=== PATIENT | female | born 1945 | race Caucasian/White ===

== ENCOUNTER → 2017-08-13 16:27 | Outpatient (CLI) | payer MEDICARE, SELFPAY ==
[2017-08-13 17:18] LABS: Appearance Urine UA CLOUDY; Bilirubin Urine UA NEGATIVE (NEGATIVE); Color Urine UA YELLOW; Glucose Urine UA 1+ g/dL (Negative); Ketones Urine UA TRACE (NEGATIVE); Leukocyte Esterase Urine UA 2+ (NEGATIVE); Nitrite Urine UA NEGATIVE (NEGATIVE); Occult Blood Urine UA 2+ (Negative); Protein Urine UA 3+ (Negative); Specific Gravity Urine UA 1.025 (1.000-1.035); Urobilinogen Urine UA 0.2 E.U./dL (0.2)
[2017-08-13 17:24] LABS: Bacteria Urine Many (>30); RBC Urine 0-1/HPF (0-5/HPF); Squamous Epithelial Cell Urine 1-5 /HPF; WBC Urine >100/HPF (0-5/HPF)
[2017-08-13 17:25] LABS: Culture Indicated Urine Specimen Cultured
--- NOTE | 2017-08-23 14:01 | PC.NURSE ---
Pt has appt today.MD visit and carey. Rodney called She is just too weak to get out of the house does not want to come today In ER on weekend -had IVF.Last H/H stable.Still having intermittent diahhrea.Discussed coming next week and if overall strength and stamina remain poor to evaluate status and goals.Discussed with Dr Sanchez
== END ==
PROVIDERS: PCP Family Medicine; Visit Provider Student in an Organized Health Care Education/Training Program
DX: N30.00 Acute cystitis without hematuria (principal)
CPT/HCPCS: 81001; 87086

== ENCOUNTER 2017-08-21 11:47 | Emergency (ER) | payer MEDICARE, SELFPAY ==
[2017-08-21 12:29] VITALS: BP 125/55; PULSE 56; RESP 14; TEMP 36.2; O2SAT 100
[2017-08-21 13:29] LABS: Add Manual Diff / Slide Review NO; Eosinophils Percent Auto 2.6 % (2-4); Hematocrit 27.2 % (36-46); Hemoglobin 9.5 g/dL (12.0-16.0); Lymphocytes Percent Auto 11.5 % (25-40); Mean Corpuscular HGB Conc 34.9 % (30-36); Mean Corpuscular Volume 97.5 fL (80-100); Monocytes Percent Auto 5.8 % (3-14); Neutrophils Absolute Auto 6500 /uL (3000-5900); Neutrophils Percent Auto 79.1 % (50-75); Platelet Count 150 X10^3/uL (150-400); Red Blood Cell Count 2.79 X10^6/uL (4.0-5.2); White Blood Cell Count 8.2 X10^3/uL (4.5-11.0)
--- NOTE | 2017-08-21 13:35 | ED.ABDPAIN ---
HPI - Abdominal Pain General Chief Complaint: Abdominal Pain Stated Complaint: 'OOZING BLOOD' Time Seen by Provider: 08/21/17 13:35 Source: patient Mode of arrival: ambulatory Limitations: no limitations History of Present Illness HPI narrative: Patient is a 72-year-old female with chronic kidney disease on peritoneal dialysis presenting with diarrhea. She has had multiple episodes. It has been black on off and on. She had blood work done about a week or more ago when she said her hemoglobin was 8. She did not receive a blood transfusion. She denies any nausea vomiting fevers or abdominal pain. She is not on antiplatelet or anticoagulation medication. She overall feels weak and more tired. No shortness of breath dizziness or lightheadedness. Location: diffuse Related Data Home Medications Medication Instructions Recorded Confirmed furosemide 80 mg PO DAILY #0 10/19/16 08/21/17 phenytoin sodium extended 300 mg PO HS #0 11/30/16 08/21/17 [Dilantin Extended] duloxetine 30 mg PO BID #0 12/01/16 08/21/17 insulin aspart U-100 [Novolog 1 dose SQ BID #0 12/07/16 08/21/17 PenFill U-100 Insulin] losartan 75 mg PO QPM #0 05/18/17 08/21/17 diphenoxylate-atropine 2 tab PO PRN PRN 07/30/17 08/21/17 B complex-vitamin C-folic acid 1 tab PO DAILY 08/21/17 08/21/17 [Nickie-Camilo] atenolol 25 mg PO QPM 08/21/17 08/21/17 cholestyramine (with sugar) 1 dose PO DAILY 08/21/17 08/21/17 digoxin [Lanoxin] 1 tab PO QPM 08/21/17 08/21/17 insulin glargine [Lantus U-100 1 dose SQ BID 08/21/17 08/21/17 Insulin] potassium chloride 2 cap PO BID 08/21/17 08/21/17 sevelamer carbonate [Renvela] 2 tab PO TIDWM 08/21/17 08/21/17 Previous Rx's Medication Instructions Recorded levothyroxine 100 mcg PO QAM #90 tab 04/06/16 gabapentin 200 mg PO HS #180 cap 06/04/17 Allergies Allergy/AdvReac Type Severity Reaction Status Date / Time metformin Allergy Mild GI UPSET Unverified 07/04/17 12:02 phenobarbital Allergy Mild GI UPSET Unverified 07/04/17 12:02 Sulfa (Sulfonamide Allergy Mild HIVES Unverified 07/04/17 12:02 Antibiotics) tetanus toxoid, adsorbed Allergy Mild RASH Unverified 07/04/17 12:02 Review of Systems Review of Systems All systems reviewed & are unremarkable except as noted in HPI and below Constitutional Denies chills, Denies fever(s), Denies lethargy and Denies weakness Cardiovascular Denies chest pain, Denies irregular heart rhythm, Denies lightheadedness, Denies palpitations, Denies dyspnea, Denies dyspnea on exertion and Denies orthopnea Respiratory Denies cough, Denies dyspnea, Denies dyspnea on exertion and Denies wheezing Gastrointestinal Gastrointestinal: Reports as per HPI and Reports system reviewed and no additional complaints, except as docu Integumentary/Breasts Denies pruritus, Denies erythema, Denies rash and Denies wounds Neurologic Denies weakness Endocrine Denies palpitations Allergic/Immunologic Denies wheezing PFSH Medical History Anemia (Acute) Chronic kidney disease (Acute) Subarachnoid hemorrhage (Acute) Family History Mother Age: 95 Osteoporosis Social History Smoking Status: Never smoker Exam Initial Vital Signs Initial Vital Signs: Vital Signs Temperature 97.1 F L 08/21/17 12:29 Pulse Rate 56 L 08/21/17 12:29 Respiratory Rate 14 08/21/17 12:29 Blood Pressure 125/55 H 08/21/17 12:29 Pulse Oximetry 100 08/21/17 12:29 Const General: cooperative and well developed Nutritional Appearance: well nourished Orientation: alert, awake, oriented x3 and not confused Chest Chest: normal inspection of the chest Resp Effort & Inspection: normal respiratory effort, able to speak in complete sentences, no respiratory distress and no use of accessory muscles Auscultation: clear to auscultation bilaterally, no rales, no rhonchi and no wheezes Cardio Rate: regular rate Rhythm: regular rhythm Heart Sounds: no click, no gallops, no murmurs and no rubs Pulses: normal peripheral pulses GI Rectal Exam: visual inspection normal, normal sphincter tone and heme negative stool Other: Peritoneal catheter in place no sign of infection Skin General: no rashes or lesions noted, No jaundice and No petechiae Neuro General: alert, oriented x3, gait normal and no focal motor deficits Speech: speech normal Course Orders Ordered: ED Orders 08/21/17 13:02 Complete Blood Count AUTO DIFF Stat Comprehensive Metabolic Panel Stat Lipase Stat Discontinued Medications Sodium Chloride (Normal Saline 0.9%) 1,000 mls @ 150 mls/hr IV CONT TOPHER Last Infusion: 08/21/17 14:51 Dose: 150 mls/hr Admin: 08/21/17 13:49 Dose: 150 mls/hr Vital Signs - 8 hr 08/21/17 12:29 08/21/17 15:13 Temperature 97.1 F L 97.8 F Pulse Rate 56 L 68 Respiratory Rate 14 14 Blood Pressure 125/55 H 136/78 H Pulse Oximetry 100 98 MDM - Abdominal Pain Lab Data Result diagrams: 08/21/17 13:02 08/21/17 13:02 Lab Results 08/21/17 08/21/17 Range/Units 13:02 13:02 WBC 8.2 (4.5-11.0) X10^3/uL RBC 2.79 L (4.0-5.2) X10^6/uL Hgb 9.5 L (12.0-16.0) g/dL Hct 27.2 L (36-46) % MCV 97.5 (80-100) fL MCH 34.0 (26-34) PG MCHC 34.9 (30-36) % RDW 16.0 H (11.6-14.8) % Plt Count 150 (150-400) X10^3/uL Neut % (Auto) 79.1 H (50-75) % Lymph % (Auto) 11.5 L (25-40) % [place] % (Auto) 5.8 (3-14) % Eos % (Auto) 2.6 (2-4) % Baso % (Auto) 1.0 (0-2) % Neut # (Auto) 6500 H (4981-7475) /uL Sodium 140 (137-145) mmol/L Potassium 4.3 (3.4-5.1) mmol/L Chloride 101 (98-107) mmol/L Carbon Dioxide 19 L (22-32) mmol/L BUN 103 H (7-17) mg/dL Creatinine 5.60 H (0.52-1.04) mg/dL Estimated GFR 7.5 L (>60) mL/min BUN/Creatinine Ratio 18.4 (6-22) Glucose 199 H (80-110) mg/dL Calcium 8.2 L (8.4-10.2) mg/dL Total Bilirubin 0.4 (0.2-1.3) mg/dL AST 15 (14-36) IU/L ALT 32 (9-52) IU/L Alkaline Phosphatase 161 H (38-126) U/L Total Protein 6.1 L (6.3-8.2) g/dL Albumin 3.2 L (3.5-5.0) g/dL Globulin 2.9 (1.7-4.1) g/dL Albumin/Globulin Ratio 1.1 (1.0-2.8) Lipase 164 (23-300) U/L Discharge Plan Departure Patient Disposition: Home, Self-Care Clinical Impression: Diarrhea Discharge Date/Time: 08/21/17 15:16 Interventions: ED Discharge Assessment Last Done: 08/21/17 15:13 Activity Restrictions/Additional Instructions: *You have been diagnosed with diarrhea *What to do: Hemoglobin is improving. No evidence of active bleeding at this time *Take medications as directed *Follow up with your primary care provider in 2-3 days *Return to ER if you should have increasing black stools, worsening pain, dizziness, lightheadedness any new, worsening or concerning symptoms Prescriptions: No Action levothyroxine 100 MCG tablet 100 mcg PO QAM Qty: 90 RF: 3 furosemide 80 MG tablet 80 mg PO DAILY Qty: 0 RF: 0 phenytoin sodium extended [Dilantin Extended] 100 MG capsule 300 mg PO HS Qty: 0 RF: 0 duloxetine 30 MG capsule,delayed release(DR/EC) 30 mg PO BID Qty: 0 RF: 0 insulin aspart U-100 [Novolog PenFill U-100 Insulin] 100 UNIT/1 ML cartridge 1 dose SQ BID Qty: 0 RF: 0 losartan 50 MG tablet 75 mg PO QPM Qty: 0 RF: 0 gabapentin 100 MG capsule 200 mg PO HS Qty: 180 RF: 3 potassium chloride 10 mEq capsule, extended release 2 cap PO BID RF: 0 cholestyramine (with sugar) 4 gram powder in packet 1 dose PO DAILY RF: 0 sevelamer carbonate [Renvela] 800 mg tablet 2 tab PO TIDWM RF: 0 B complex-vitamin C-folic acid [Nickie-Camilo] 0.8 mg tablet 1 tab PO DAILY RF: 0 insulin glargine [Lantus U-100 Insulin] 100 UNIT/1 ML solution 1 dose SQ BID RF: 0 atenolol 25 MG tablet 25 mg PO QPM RF: 0 digoxin [Lanoxin] 250 MCG tablet 1 tab PO QPM RF: 0 diphenoxylate-atropine 2.5 MG/0.025 MG tablet 2 tab PO PRN PRN (Reason: Diarrhea) RF: 0 Referrals: Randi Lara MD [Primary Care Provider] -
[2017-08-21 13:37] LABS: Alanine Aminotransferase 32 IU/L (9-52); Albumin 3.2 g/dL (3.5-5.0); Albumin Globulin Ratio 1.1 (1.0-2.8); Alkaline Phosphatase 161 U/L (38-126); Aspartate Aminotransferase 15 IU/L (14-36); BUN Creatinine Ratio 18.4 (6-22); Bilirubin Total 0.4 mg/dL (0.2-1.3); Blood Urea Nitrogen 103 mg/dL (7-17); Calcium 8.2 mg/dL (8.4-10.2); Carbon Dioxide 19 mmol/L (22-32); Chloride 101 mmol/L (98-107); Estimated Glomerular Filt Rate 7.5 mL/min (>60); Globulin 2.9 g/dL (1.7-4.1); Glucose 199 mg/dL (80-110); HEMOLYSIS < 15 (0-50); Lipase 164 U/L (23-300); Potassium 4.3 mmol/L (3.4-5.1); Sodium 140 mmol/L (137-145); Total Protein 6.1 g/dL (6.3-8.2)
[2017-08-21] MEDS: SODIUM CHLORIDE 0.9% 1,000 ML 150 ML IV (13:49)
[2017-08-21 15:13] VITALS: BP 136/78; PULSE 68; RESP 14; TEMP 36.6; O2SAT 98
== END 2017-08-21 15:16 | disposition home or self-care (01) ==
PROVIDERS: Emergency Provider Emergency Medicine; PCP Family Medicine
DX: R19.7 Diarrhea, unspecified (principal)
CPT/HCPCS: 36591; 80053; 83690; 85025; 93005; 96360; 99283; 99284

== ENCOUNTER → 2017-08-27 15:10 | Outpatient (CLI) | payer MEDICARE, SELFPAY ==
[2017-08-27 15:51] LABS: Bilirubin Urine UA NEGATIVE (NEGATIVE); Color Urine UA YELLOW; Glucose Urine UA 1+ g/dL (Normal); Ketones Urine UA NEGATIVE (NEGATIVE); Leukocyte Esterase Urine UA 1+ (NEGATIVE); Nitrite Urine UA Negative (Negative); Occult Blood Urine UA TRACE-INTACT (Negative); Protein Urine UA 2+ (Negative); Specific Gravity Urine UA 1.025 (1.000-1.035); Urobilinogen Urine UA 0.2 E.U./dL (0.2)
[2017-08-27 15:59] LABS: Appearance Urine UA CLOUDY
[2017-08-27 16:02] LABS: RBC Urine 0-1/HPF (0-5/HPF); Squamous Epithelial Cell Urine 1-5 /HPF; WBC Urine 1-5/HPF (0-5/HPF)
[2017-08-27 16:03] LABS: Amorphous Sediment Urine 2+; Bacteria Urine Moderate (10-30); Culture Indicated Urine Specimen Cultured
== END ==
PROVIDERS: PCP Family Medicine; Visit Provider Student in an Organized Health Care Education/Training Program
DX: N30.00 Acute cystitis without hematuria (principal)
CPT/HCPCS: 81001; 87086

== ENCOUNTER → 2017-09-05 13:56 | Outpatient (CLI) | payer MEDICARE, SELFPAY ==
[2017-09-07 16:26] LABS: Immunoglobulin G, Quantitative 849 mg/dL (694-1618)
[2017-09-07 16:34] LABS: Free Kappa Light Chain 639.8 mg/L (3.3-19.4); Free Kappa/ Lambda Ratio 41.85 (0.26-1.65); Free Lambda 15.3 mg/L (5.7-26.3)
== END ==
PROVIDERS: PCP Family Medicine; Visit Provider Nurse Practitioner Gerontology
DX: C90.00 Multiple myeloma not having achieved remission (principal)
CPT/HCPCS: 36415; 82232; 82784; 83883

== ENCOUNTER → 2017-10-29 09:54 | Outpatient (CLI) | payer MEDICARE, SELFPAY ==
[2017-10-29 10:20] LABS: Add Manual Diff / Slide Review NO; Basophils Percent Auto 4.9 % (0-2); Eosinophils Percent Auto 5.3 % (2-4); Hemoglobin 9.5 g/dL (12.0-16.0); Lymphocytes Percent Auto 11.3 % (25-40); Mean Corpuscular HGB Conc 35.1 % (30-36); Mean Corpuscular Hemoglobin 34.4 PG (26-34); Mean Corpuscular Volume 97.9 fL (80-100); Monocytes Percent Auto 5.9 % (3-14); Neutrophils Absolute Auto 4600 /uL (3000-5900); Neutrophils Percent Auto 72.6 % (50-75); Platelet Count 158 X10^3/uL (150-400); Red Blood Cell Count 2.76 X10^6/uL (4.0-5.2); Red Cell Distribution Width 17.6 % (11.6-14.8); White Blood Cell Count 6.4 X10^3/uL (4.5-11.0)
[2017-10-29 10:32] LABS: Alanine Aminotransferase 27 IU/L (9-52); Albumin 3.3 g/dL (3.5-5.0); Albumin Globulin Ratio 1.2 (1.0-2.8); Alkaline Phosphatase 121 U/L (38-126); Aspartate Aminotransferase 18 IU/L (14-36); BUN Creatinine Ratio 13.5 (6-22); Bilirubin Total 0.4 mg/dL (0.2-1.3); Blood Urea Nitrogen 69 mg/dL (7-17); Calcium 8.1 mg/dL (8.4-10.2); Carbon Dioxide 20 mmol/L (22-32); Chloride 102 mmol/L (98-107); Estimated Glomerular Filt Rate 8.4 mL/min (>60); Globulin 2.8 g/dL (1.7-4.1); Glucose 341 mg/dL (80-110); HEMOLYSIS < 15 (0-50); Potassium 3.7 mmol/L (3.4-5.1); Sodium 136 mmol/L (137-145); Total Protein 6.1 g/dL (6.3-8.2)
[2017-10-31 12:31] LABS: Free Kappa Light Chain 915.2 mg/L (3.3-19.4); Free Kappa/ Lambda Ratio 50.01 (0.26-1.65); Free Lambda 18.3 mg/L (5.7-26.3)
[2017-11-01 15:52] LABS: Albumin 3.3 g/dL (3.8-4.8); Alpha 1 Globulin 0.3 g/dL (0.2-0.3); Alpha 2 Globulin 0.8 g/dL (0.5-0.9); Beta 1 Globulin 0.2 g/dL (0.4-0.6); Gamma Globulin 0.7 g/dL (0.8-1.7); Protein, Total 5.6 g/dL (6.1-8.1)
== END ==
PROVIDERS: PCP Family Medicine; Visit Provider Internal Medicine Hematology & Oncology
DX: C90.00 Multiple myeloma not having achieved remission (principal)
CPT/HCPCS: 36415; 80053; 82784; 83883; 84155; 84165; 85025; 86334

== ENCOUNTER 2017-11-27 05:27 | Emergency (ER) | payer MEDICARE, SELFPAY ==
--- NOTE | 2017-11-27 05:34 | DI.RAD.S_ITS ---
PROCEDURE: XR ANKLE LT MIN 3V INDICATIONS: fall with ankle pain TECHNIQUE: 3 views of the ankle were acquired. COMPARISON: [facility], CR, FOOT 3V LEFT, 07/05/2012, 9:58. FINDINGS: Bones: There is a comminuted, oblique, intra-articular fracture of the lateral malleolus. Ankle mortise is normally aligned. No suspicious bony lesions. Soft tissues: No tibiotalar joint effusion. Achilles tendon appears normal. Soft tissue swelling over the lateral malleolus. Vascular calcifications consistent with atherosclerosis. IMPRESSION: Comminuted fracture of the lateral malleolus. Dictated by: Huy Garcia M.D. on 11/27/2017 at 8:40 Approved by: Huy Garcia M.D. on 11/27/2017 at 8:43
--- NOTE | 2017-11-27 05:35 | DI.RAD.S_ITS ---
PROCEDURE: XR CHEST 1V INDICATIONS: Shortness of breath, weakness TECHNIQUE: One view of the chest was acquired. COMPARISON: [facility], CHEST 2 VIEW, 02/26/2017, 12:23. [facility], CHEST 2 VIEW, 04/12/2017, 14:20. FINDINGS: Surgical changes and devices: None. Lungs and pleura: No pleural effusions or pneumothorax. Bibasilar atelectasis. Lungs are otherwise clear. Mediastinum: Mediastinal contours appear normal. Heart size is normal. Bones and chest wall: No suspicious bony lesions. Overlying soft tissues appear unremarkable. IMPRESSION: Bibasilar atelectasis. Dictated by: Huy Garcia M.D. on 11/27/2017 at 8:28 Approved by: Huy Garcia M.D. on 11/27/2017 at 8:29
[2017-11-27 06:00] VITALS: BP 133/46; PULSE 59; RESP 18; TEMP 36.9; O2SAT 97
[2017-11-27 06:10] LABS: Add Manual Diff / Slide Review NO; Eosinophils Percent Auto 1.2 % (2-4); Hematocrit 24.1 % (36-46); Hemoglobin 8.4 g/dL (12.0-16.0); Lymphocytes Percent Auto 7.2 % (25-40); Mean Corpuscular HGB Conc 34.7 % (30-36); Mean Corpuscular Hemoglobin 34.6 PG (26-34); Mean Corpuscular Volume 99.6 fL (80-100); Monocytes Percent Auto 6.5 % (3-14); Neutrophils Absolute Auto 8000 /uL (3000-5900); Neutrophils Percent Auto 84.1 % (50-75); Platelet Count 168 X10^3/uL (150-400); Red Blood Cell Count 2.42 X10^6/uL (4.0-5.2); Red Cell Distribution Width 16.1 % (11.6-14.8); White Blood Cell Count 9.6 X10^3/uL (4.5-11.0)
[2017-11-27 06:19] LABS: Alanine Aminotransferase 43 IU/L (9-52); Albumin 3.4 g/dL (3.5-5.0); Albumin Globulin Ratio 1.1 (1.0-2.8); Alkaline Phosphatase 151 U/L (38-126); Aspartate Aminotransferase 32 IU/L (14-36); BUN Creatinine Ratio 6.8 (6-22); Bilirubin Total 0.9 mg/dL (0.2-1.3); Blood Urea Nitrogen 50 mg/dL (7-17); Calcium 8.2 mg/dL (8.4-10.2); Carbon Dioxide 23 mmol/L (22-32); Chloride 104 mmol/L (98-107); Creatine Kinase 26 U/L (30-135); Estimated Glomerular Filt Rate 5.4 mL/min (>60); Globulin 3.2 g/dL (1.7-4.1); Glucose 218 mg/dL (80-110); HEMOLYSIS < 15 (0-50); Lipase 82 U/L (23-300); Potassium 3.2 mmol/L (3.4-5.1); Sodium 143 mmol/L (137-145); Total Protein 6.6 g/dL (6.3-8.2)
[2017-11-27] MEDS: SODIUM CHLORIDE 0.9% 1,000 ML 150 ML IV (06:25)
--- NOTE | 2017-11-27 06:27 | ED_ITS ---
HPI - Fall General Stated Complaint: Weakness Time Seen by Provider: 11/27/17 05:30 Source: patient, family and EMS Mode of arrival: EMS Limitations: no limitations History of Present Illness HPI Narrative: 9-year-old female with history of diabetes, multiple myeloma, renal failure on peritoneal dialysis presents with chief complaint of increasing fatigue and profound weakness over the past day or 2. She has become so weak she cannot get out of bed in her had to get her a wheelchair just to get to the bathroom. She fell yesterday due to this weakness and injured her left ankle. She denies any head, neck or back pain. She denies any chest pain or significant shortness of breath but does state she was recently admitted at a hospital in [facility] for aspiration pneumonia. She denies any fever or chills nor abdominal pain, nausea or vomiting. MD complaint: fall Onset (ago): day(s) Fall from: standing Fall witnessed: no Place fall occurred: home Loss of consciousness: none Prolonged down time: no Symptoms prior to fall: other Location of injury - extremities: Left: ankle Severity: mild Associated symptoms (after fall): weakness and lightheaded Related Data Home Medications Medication Instructions Recorded Confirmed furosemide 80 mg PO DAILY #0 10/19/16 11/22/17 duloxetine 30 mg PO BID #0 12/01/16 11/22/17 insulin aspart U-100 [Novolog 1 dose SQ BID #0 12/07/16 11/22/17 PenFill U-100 Insulin] insulin glargine [Lantus U-100 1 dose SQ BID 08/21/17 11/22/17 Insulin] sevelamer carbonate [Renvela] 2 tab PO TIDWM 08/21/17 11/22/17 losartan 50 mg tablet 50 mg PO QPM #0 tab 09/27/17 11/22/17 phenytoin sodium extended 100 mg 200 mg PO HS #0 cap 09/27/17 11/22/17 capsule cholecalciferol (vitamin D3) 5,000 5,000 unit PO DAILY 11/22/17 11/22/17 unit capsule diphenoxylate-atropine 2.5 2 tab PO Q6-8H PRN tab 11/22/17 11/22/17 mg-0.025 mg tablet opium tincture 10 mg/mL (morphine) 0.6 ml PO ONCE PRN ml 11/22/17 11/22/17 oral Previous Rx's Medication Instructions Recorded levothyroxine 100 mcg PO QAM #90 tab 04/06/16 gabapentin 200 mg PO HS #180 cap 06/04/17 atenolol 25 mg tablet 25 mg PO QPM #90 tab 09/03/17 multivitamin tablet 1 tab PO DAILY #90 tab 09/27/17 digoxin 250 mcg tablet 125 mcg PO QPM #45 tab 10/04/17 cholestyramine-aspartame 4 gram 4 gram PO QACBREAK #30 packet 10/09/17 oral powder for susp in a packet Allergies Allergy/AdvReac Type Severity Reaction Status Date / Time metformin Allergy Mild GI UPSET Verified 11/22/17 14:05 phenobarbital Allergy Mild GI UPSET Verified 11/22/17 14:05 Sulfa (Sulfonamide Allergy Mild HIVES Verified 11/22/17 14:05 Antibiotics) tetanus toxoid, adsorbed Allergy Mild RASH Verified 11/22/17 14:05 Review of Systems Review of Systems All systems reviewed & are unremarkable except as noted in HPI and below Constitutional Denies chills, Denies fever(s), Denies lethargy and Reports weakness Eyes Denies change in vision, Denies eye discharge, Denies irritation and Denies loss of vision ENT Ears, Nose, Mouth, and Throat: Denies change in voice, Denies neck pain and Denies sore throat Cardiovascular Denies chest pain, Denies irregular heart rhythm, Denies lightheadedness, Denies palpitations, Denies dyspnea, Denies dyspnea on exertion and Denies orthopnea Respiratory Denies cough, Denies dyspnea, Denies dyspnea on exertion and Denies wheezing Gastrointestinal Gastrointestinal: Denies abdominal pain, Denies change in bowel habits, Denies diarrhea, Denies nausea and Denies vomiting Genitourinary Denies hematuria, Denies flank pain, Denies urinary incontinence and Denies urinary urgency Musculoskeletal Reports joint swelling, Reports limited range of motion and Denies neck pain Integumentary/Breasts Denies pruritus, Denies erythema, Denies rash and Denies wounds Neurologic Denies confusion, Denies loss of vision and Reports weakness Psychiatric Denies anxiety, Denies confusion, Denies depression, Denies homicidal ideation and Denies suicidal ideation Endocrine Denies palpitations Hematologic/Lymphatic Denies easy bruising Allergic/Immunologic Denies wheezing Exam Narrative Exam Narrative: 72-year-old female appears unwell, a bit disheveled and with poor color Initial Vital Signs Initial Vital Signs: Vital Signs Temperature 98.4 F 11/27/17 06:00 Pulse Rate 59 L 11/27/17 06:00 Respiratory Rate 18 11/27/17 06:00 Blood Pressure 133/46 L 11/27/17 06:00 Pulse Oximetry 97 11/27/17 06:00 Const General: cooperative, well developed, in distress and ill appearing Nutritional Appearance: well nourished Orientation: alert, awake, oriented x3 and not confused HENNV Nose: external nose normal Mouth: No moist mucous membranes Teeth and gingiva: fair dentition Eyes General: appearance normal, both eyes and all related structures Eyelids: eyelids normal Conjunctivae: conjunctivae normal Sclera: sclerae normal Pupils: PERRL EOM: EOM intact bilaterally Chest Chest: normal inspection of the chest Resp Effort & Inspection: normal respiratory effort, able to speak in complete sentences, no respiratory distress and no use of accessory muscles Auscultation: clear to auscultation bilaterally, no rales, no rhonchi and no wheezes GI Inspection: non-distended Palpation: soft, no hepatosplenomegaly, No guarding, No pulsatile mass and No tender Auscultation: normal bowel sounds Back/Spine/Pelvis Back: No CVA tenderness Cervical Spine: cervical ROM normal and No pain with cervical ROM Thoracic/Lumbar Spine: thoracic and lumbar spine normal to inspection Skin Other: tenting, poor turgor Extrem Left lower extremity: ankle (Pain, swelling over lateral ankle. Closed, isolated, neurovascularly intact) [facility] Medical History Dependence on renal dialysis (Chronic 12/18/16) Multiple myeloma (Chronic) Hypertension (Chronic) Other and unspecified hyperlipidemia (Chronic) Controlled type 2 diabetes mellitus (Chronic) Hypothyroidism (acquired) (Chronic 12/16/10) Sleep apnea (Chronic) MGUS (monoclonal gammopathy of unknown significance) (Chronic 2014) Aortic stenosis (Chronic) Nephropathy (Chronic) Vitamin D deficiency (Chronic) Seizures (Chronic) Depression (Chronic 12/16/10) Anemia of chronic disease (Chronic) Renal failure (Chronic) Chronic kidney disease (Chronic 10/22/14) History of PSVT (paroxysmal supraventricular tachycardia) (Chronic 12/16/10) Hx of adenomatous colonic polyps (Inactive 12/16/10) History of vaginal delivery (Resolved) Surgical History History of arthroscopic knee surgery (Resolved 06/2010) History of breast biopsy (Resolved 1989) History of foot surgery (Resolved 1999) History of hysterectomy including cervix (Resolved 03/1977) History of surgery on arm (Resolved 2005) History of tonsillectomy (Resolved 1971) History of ventral hernia repair (Resolved 1991) Hx of cholecystectomy (Resolved 1978) Family History Mother Age: 95 Osteoporosis Father Lung cancer Social History marital status: number of children: 3 household members: spouse lives independently: Yes caregiver/support person: No housing: house pets and animals: No education level: college occupational status: other (Retired) 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 bobby/yarsanism: Zoroastrianism travel history: recent ([place], [place]) leisure activities: games (Plays Cards) Smoking Status: Never smoker Tobacco: How many years used: 0 quit status: quit date established (Never Started) second hand exposure: No alcohol intake: never substance use type: does not use Procedures Orthopedic Splinting/Casting Injury #1: Side: left Lower Extremity Injury Location: ankle Lower Extremity Immobilizer: stirrup splint Course Orders Ordered: ED Orders 11/27/17 05:34 XR ankle LT min 3V Stat 11/27/17 05:35 XR chest 1V Stat EKG-12 Lead Stat 11/27/17 05:37 Blood Culture Stat 11/27/17 05:45 B Type Natriuretic Peptide Stat Complete Blood Count AUTO DIFF Stat Comprehensive Metabolic Panel Stat Lactate (Lactic Acid) Stat Lipase Stat Procalcitonin Stat Troponin & CK Cardiac Panel Stat Sodium Chloride (Normal Saline 0.9%) 1,000 mls @ 150 mls/hr IV CONT TOPHER Last Admin: 11/27/17 06:25 Dose: 150 mls/hr Consultations Consultation #1: Called to patient's primary care provider regarding the possibility of admission here, however given her end-stage renal failure requiring dialysis, even know it is peritoneal patient performs it on herself at home, there is not sufficient backup in the event this patient continues to worsen. Furthermore her diagnosis is still non specific and may be evolving. 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 Consultation #2: call to Perlita Briones hospitalist sharmila. Dr. uBtler is happy to accept. Time: 07:00 Vital Signs - 8 hr 11/27/17 06:00 Temperature 98.4 F Pulse Rate 59 L Respiratory Rate 18 Blood Pressure 133/46 L Pulse Oximetry 97 MDM - Fall Differential Diagnosis Likely syncope, concussion with loss of consciousness and concussion without loss of consciousness Medical Records Attestation: I reviewed the patient's medical records. Lab Data Attestation: I reviewed the patient's lab results. Result diagrams: 11/27/17 05:45 11/27/17 05:45 Lab Results 11/27/17 11/27/17 11/27/17 Range/Units 05:45 05:45 05:45 WBC 9.6 (4.5-11.0) X10^3/uL RBC 2.42 L (4.0-5.2) X10^6/uL Hgb 8.4 L (12.0-16.0) g/dL Hct 24.1 L (36-46) % MCV 99.6 (80-100) fL MCH 34.6 H (26-34) PG MCHC 34.7 (30-36) % RDW 16.1 H (11.6-14.8) % Plt Count 168 (150-400) X10^3/uL Neut % (Auto) 84.1 H (50-75) % Lymph % (Auto) 7.2 L (25-40) % Lake % (Auto) 6.5 (3-14) % Eos % (Auto) 1.2 L (2-4) % Baso % (Auto) 1.0 (0-2) % Neut # (Auto) 8000 H (7930-7999) /uL Sodium (137-145) mmol/L Potassium (3.4-5.1) mmol/L Chloride (98-107) mmol/L Carbon Dioxide (22-32) mmol/L BUN (7-17) mg/dL Creatinine (0.52-1.04) mg/dL Estimated GFR (>60) mL/min BUN/Creatinine Ratio (6-22) Glucose (80-110) mg/dL Lactate (0.7-2.1) mmol/L Calcium (8.4-10.2) mg/dL Total Bilirubin (0.2-1.3) mg/dL AST (14-36) IU/L ALT (9-52) IU/L Alkaline Phosphatase (38-126) U/L Total Creatine Kinase (30-135) U/L Troponin I (0.01-0.034) ng/mL B-Natriuretic Peptide 210.0 H (<100) Total Protein (6.3-8.2) g/dL Albumin (3.5-5.0) g/dL Globulin (1.7-4.1) g/dL Albumin/Globulin Ratio (1.0-2.8) Lipase (23-300) U/L Procalcitonin 0.36 (<0.5) ng/mL 11/27/17 11/27/17 Range/Units 05:45 05:45 WBC (4.5-11.0) X10^3/uL RBC (4.0-5.2) X10^6/uL Hgb (12.0-16.0) g/dL Hct (36-46) % MCV (80-100) fL MCH (26-34) PG MCHC (30-36) % RDW (11.6-14.8) % Plt Count (150-400) X10^3/uL Neut % (Auto) (50-75) % Lymph % (Auto) (25-40) % Lake % (Auto) (3-14) % Eos % (Auto) (2-4) % Baso % (Auto) (0-2) % Neut # (Auto) (5255-5427) /uL Sodium 143 (137-145) mmol/L Potassium 3.2 L (3.4-5.1) mmol/L Chloride 104 (98-107) mmol/L Carbon Dioxide 23 (22-32) mmol/L BUN 50 H (7-17) mg/dL Creatinine 7.40 H (0.52-1.04) mg/dL Estimated GFR 5.4 L (>60) mL/min BUN/Creatinine Ratio 6.8 (6-22) Glucose 218 H (80-110) mg/dL Lactate 3.0 H (0.7-2.1) mmol/L Calcium 8.2 L (8.4-10.2) mg/dL Total Bilirubin 0.9 (0.2-1.3) mg/dL AST 32 (14-36) IU/L ALT 43 (9-52) IU/L Alkaline Phosphatase 151 H (38-126) U/L Total Creatine Kinase 26 L (30-135) U/L Troponin I < 0.012 (0.01-0.034) ng/mL B-Natriuretic Peptide (<100) Total Protein 6.6 (6.3-8.2) g/dL Albumin 3.4 L (3.5-5.0) g/dL Globulin 3.2 (1.7-4.1) g/dL Albumin/Globulin Ratio 1.1 (1.0-2.8) Lipase 82 (23-300) U/L Procalcitonin (<0.5) ng/mL Imaging Data Chest x-ray: Radiologist's impression: Prominence of the left pulmonary hilum may represent adenopathy or enlarged pulmonary artery, pleural-based lesion is also possible MDM Narrative Medical decision making narrative: Patient has very little in the way of specific complaint other than her ankle pain. Over the past 2 days she has had a significant departure from her normal level of strength and energy. She has multiple lab abnormalities which are slightly worse than her typical including potassium of 3.2, a bump in creatinine from her normal 5.1 up to 7.4 with a GFR of 5.4, slight decrease in hemoglobin from 9.5 down to 8.4 Discharge Plan Departure Patient Disposition: [facility] Clinical Impression: Acute dehydration, Weakness, Fracture of distal end of fibula, Acute hypokalemia Prescriptions: No Action levothyroxine 100 MCG tablet 100 mcg PO QAM Qty: 90 RF: 3 furosemide 80 MG tablet 80 mg PO DAILY Qty: 0 RF: 0 duloxetine 30 MG capsule,delayed release(DR/EC) 30 mg PO BID Qty: 0 RF: 0 insulin aspart U-100 [Novolog PenFill U-100 Insulin] 100 UNIT/1 ML cartridge 1 dose SQ BID Qty: 0 RF: 0 gabapentin 100 MG capsule 200 mg PO HS Qty: 180 RF: 3 multivitamin [Multiple Vitamins] tablet 1 tab PO DAILY Qty: 90 RF: 0 phenytoin sodium extended [Dilantin Extended] 100 mg capsule 200 mg PO HS Qty: 0 RF: 0 losartan 50 mg tablet 50 mg PO QPM Qty: 0 RF: 0 digoxin [Lanoxin] 250 mcg tablet 125 mcg PO QPM Qty: 45 RF: 3 diphenoxylate-atropine [Lomotil] 2.5-0.025 mg tablet 2 tab PO Q6-8H PRNRF: 0 opium tincture 10 mg/mL (morphine) tincture 0.6 ml PO ONCE PRNRF: 0 cholecalciferol (vitamin D3) 5,000 unit capsule 5,000 unit PO DAILY RF: 0 atenolol 25 mg tablet 25 mg PO QPM Qty: 90 RF: 3 cholestyramine-aspartame [Cholestyramine Light] 4 gram powder in packet 4 gram PO QACBREAK Qty: 30 RF: 11 sevelamer carbonate [Renvela] 800 mg tablet 2 tab PO TIDWM RF: 0 insulin glargine [Lantus U-100 Insulin] 100 UNIT/1 ML solution 1 dose SQ BID RF: 0
[2017-11-27 06:31] LABS: Troponin I < 0.012 ng/mL (0.01-0.034)
[2017-11-27 06:38] LABS: Procalcitonin 0.36 ng/mL (<0.5)
[2017-11-27] MEDS: CEFTRIAXONE 1 GM/50 ML FROZ.PIGGY IV (07:38)
[2017-11-27 07:52] VITALS: BP 120/43; PULSE 56; RESP 12; O2SAT 100
[2017-11-27 08:31] VITALS: BP 130/38; PULSE 63; RESP 12; O2SAT 94
[2017-11-27] MEDS: POTASSIUM CHLORIDE 20 MEQ/15 ML UDC 40 MEQ PO (08:32)
[2017-11-27] MEDS: ACETAMINOPHEN 325 MG TABLET 650 MG PO (08:32)
[2017-11-27 10:02] LABS: Reflexed Lactate in 2 Hours Y
== END 2017-11-27 09:21 | disposition short-term general hospital (02) ==
PROVIDERS: Emergency Provider Emergency Medicine; PCP Family Medicine
DX: S82.832A Other fracture of upper and lower end of left fibula, initial encounter for closed fracture (principal); E86.0 Dehydration; E87.6 Hypokalemia; Z99.2 Dependence on renal dialysis; W19.XXXA Unspecified fall, initial encounter
CPT/HCPCS: 29515; 36415; 36591; 71045; 73610; 80053; 82550; 82553; 83605; 83690; 83880; 84145; 84484; 85025; 87040; 93005; 93010; 96361; 96365; 99283; 99285

== ENCOUNTER → 2017-12-21 10:34 | Outpatient (CLI) | payer MEDICARE, SELFPAY ==
[2017-12-21 11:22] LABS: Appearance Urine UA CLOUDY; Bilirubin Urine UA NEGATIVE (NEGATIVE); Color Urine UA YELLOW; Glucose Urine UA TRACE g/dL (Normal); Ketones Urine UA TRACE (NEGATIVE); Leukocyte Esterase Urine UA 2+ (NEGATIVE); Nitrite Urine UA Negative (Negative); Occult Blood Urine UA 2+ (Negative); Protein Urine UA 3+ (Negative); Specific Gravity Urine UA 1.025 (1.000-1.035); Urobilinogen Urine UA 0.2 E.U./dL (0.2)
[2017-12-21 11:28] LABS: Bacteria Urine Many (>30); RBC Urine >100/HPF (0-5/HPF); Squamous Epithelial Cell Urine 10-30 /HPF; WBC Urine >100/HPF (0-5/HPF)
[2017-12-21 11:29] LABS: Culture Indicated Urine Cult Not Indicated
== END ==
PROVIDERS: PCP Family Medicine; Visit Provider Internal Medicine
DX: R39.89 Other symptoms and signs involving the genitourinary system (principal)
CPT/HCPCS: 81003; 81015

== ENCOUNTER → 2017-12-21 10:55 | Outpatient (CLI) | payer MEDICARE, SELFPAY ==
[2017-12-21 11:26] LABS: Add Manual Diff / Slide Review NO; Eosinophils Percent Auto 6.9 % (2-4); Hematocrit 29.4 % (36-46); Hemoglobin 10.3 g/dL (12.0-16.0); Lymphocytes Percent Auto 18.1 % (25-40); Mean Corpuscular Hemoglobin 33.3 PG (26-34); Mean Corpuscular Volume 95.2 fL (80-100); Monocytes Percent Auto 9.4 % (3-14); Neutrophils Absolute Auto 4300 /uL (3000-5900); Neutrophils Percent Auto 63.6 % (50-75); Platelet Count 165 X10^3/uL (150-400); Red Blood Cell Count 3.09 X10^6/uL (4.0-5.2); Red Cell Distribution Width 19.1 % (11.6-14.8); White Blood Cell Count 6.8 X10^3/uL (4.5-11.0)
[2017-12-21 11:36] LABS: Alanine Aminotransferase 50 IU/L (9-52); Albumin 3.5 g/dL (3.5-5.0); Albumin Globulin Ratio 1.2 (1.0-2.8); Alkaline Phosphatase 151 U/L (38-126); Aspartate Aminotransferase 31 IU/L (14-36); BUN Creatinine Ratio 8.1 (6-22); Bilirubin Total 0.5 mg/dL (0.2-1.3); Blood Urea Nitrogen 48 mg/dL (7-17); Calcium 8.7 mg/dL (8.4-10.2); Carbon Dioxide 24 mmol/L (22-32); Chloride 104 mmol/L (98-107); Estimated Glomerular Filt Rate 7.1 mL/min (>60); Globulin 2.9 g/dL (1.7-4.1); Glucose 239 mg/dL (80-110); HEMOLYSIS < 15 (0-50); Potassium 4.4 mmol/L (3.4-5.1); Sodium 142 mmol/L (137-145); Total Protein 6.4 g/dL (6.3-8.2)
[2017-12-21 11:43] LABS: Hemoglobin A1C% w Est Avg Glu 7.4 % (4.0-6.0)
[2017-12-21 12:01] LABS: Cholesterol 228 mg/dL (140-199); HDL Cholesterol 37 mg/dL (40-60)
[2017-12-21 12:23] LABS: Triglycerides 576 mg/dL (35-150)
== END ==
PROVIDERS: Internal Medicine Hematology & Oncology; PCP Family Medicine; Visit Provider Internal Medicine
DX: E11.9 Type 2 diabetes mellitus without complications (principal); N39.0 Urinary tract infection, site not specified; C90.00 Multiple myeloma not having achieved remission
CPT/HCPCS: 36415; 80053; 80061; 81003; 81015; 83036; 85025

== ENCOUNTER → 2017-12-25 11:38 | Outpatient (CLI) | payer MEDICARE, SELFPAY | PROVIDERS: PCP Family Medicine; Visit Provider Family Medicine | DX: R39.89 Other symptoms and signs involving the genitourinary system (principal) | CPT/HCPCS: 87086 ==

== ENCOUNTER → 2017-12-26 10:40 | Outpatient (CLI) | payer MEDICARE, SELFPAY | PROVIDERS: PCP Family Medicine; Visit Provider Family Medicine | DX: Z53.9 Procedure and treatment not carried out, unspecified reason (principal) ==

== ENCOUNTER → 2018-01-01 17:27 | Outpatient (CLI) | payer MEDICARE, SELFPAY ==
[2018-01-01 18:10] LABS: Appearance Urine UA TURBID; Bilirubin Urine UA NEGATIVE (NEGATIVE); Color Urine UA OTHER; Glucose Urine UA NEGATIVE (Normal); Ketones Urine UA TRACE (NEGATIVE); Leukocyte Esterase Urine UA 2+ (NEGATIVE); Nitrite Urine UA Negative (Negative); Occult Blood Urine UA 3+ (Negative); Protein Urine UA 3+ (Negative); Urobilinogen Urine UA 0.2 E.U./dL (0.2)
[2018-01-01 18:22] LABS: RBC Urine 10-30/HPF (0-5/HPF); Squamous Epithelial Cell Urine 1-5 /HPF; WBC Urine >100/HPF (0-5/HPF)
[2018-01-01 18:23] LABS: Bacteria Urine Many (>30); Culture Indicated Urine Specimen Cultured
== END ==
PROVIDERS: PCP Internal Medicine; Visit Provider Student in an Organized Health Care Education/Training Program
DX: N30.00 Acute cystitis without hematuria (principal)
CPT/HCPCS: 81001; 87077; 87086; 87186

== ENCOUNTER 2018-01-02 13:09 | Emergency (ER) | payer MEDICARE, SELFPAY ==
[2018-01-02] VITALS (10 sets, daily range): BP systolic 92–125; BP diastolic 33–58; PULSE 59–67; RESP 15–18; TEMP 36.3; O2SAT 93–100; BMI 23.7
--- NOTE | 2018-01-02 13:46 | ED_ITS ---
HPI - Weakness General Chief complaint: Weakness Stated complaint: Weakness Time Seen by Provider: 01/02/18 13:29 Source: patient and family Mode of arrival: ambulatory Limitations: no limitations History of Present Illness HPI Narrative: Patient is a 72-year-old female with end-stage renal disease on nightly peritoneal dialysis here for evaluation of a week to 10 days of fatigue , weakness. also reports that there have been several episodes where the patient has become what he describes is unresponsive with shaking like movements. He states that these episodes last several minutes but resolved on their own. He does state that she is somewhat confused after these episodes. The patient does not remember these episodes. There is no loss of bowel or bladder. Patient recently had a hospital stay at [facility] for a left lower extremity fracture. During that time she had a dialysis port placed in her right chest for hemodialysis because they were unable to perform peritoneal dialysis during her hospital stay. Her last peritoneal dialysis was last evening. She states that she has no other symptoms. No abdominal pain. No swelling. No fevers. She states she still does produce a small amount a urine. She is taking all of her medications. She stated that approximately 1 year ago she had a ?head bleed ?she does not remember where this was located in her head or why it happened. Patient reports that after that time she was started on Keppra and Dilantin. She is no longer on Keppra. She states that she has been decreasing her Dilantin use secondary to the recommendations of her neurologist. Related Data Home Medications Medication Instructions Recorded Confirmed furosemide 80 mg PO DAILY #0 10/19/16 01/02/18 duloxetine 30 mg PO BID #0 12/01/16 01/02/18 insulin aspart U-100 [Novolog 1 dose SQ DIRECTED #0 12/07/16 01/02/18 PenFill U-100 Insulin] insulin glargine [Lantus U-100 1 dose SQ BID 08/21/17 01/02/18 Insulin] sevelamer carbonate [Renvela] 2 tab PO TIDWM 08/21/17 01/02/18 losartan 50 mg tablet 50 mg PO QAM #0 tab 09/27/17 01/02/18 phenytoin sodium extended 100 mg 300 mg PO HS #0 cap 09/27/17 01/02/18 capsule cholecalciferol (vitamin D3) 5,000 5,000 unit PO QMWF 11/22/17 01/02/18 unit capsule acetaminophen-codeine 1 tab PO TID PRN 01/02/18 01/02/18 bortezomib [Velcade] 1 dose SUBCUT QWEEK 01/02/18 01/02/18 dexamethasone 20 mg PO QWEEK 01/02/18 01/02/18 diphenoxylate-atropine [Lomotil] 1 tab PO Q6-8H PRN 01/02/18 01/02/18 gabapentin 300 mg PO QPM 01/02/18 01/02/18 opium tincture 0.6 ml PO PRN PRN 01/02/18 01/02/18 tramadol 50 mg PO PRN PRN 01/02/18 01/02/18 Previous Rx's Medication Instructions Recorded levothyroxine 100 mcg PO QAM #90 tab 04/06/16 atenolol 25 mg tablet 25 mg PO QPM #90 tab 09/03/17 multivitamin tablet 1 tab PO DAILY #90 tab 09/27/17 digoxin 250 mcg tablet 125 mcg PO QPM #45 tab 10/04/17 cholestyramine-aspartame 4 gram 4 gram PO QACBREAK #30 packet 10/09/17 oral powder for susp in a packet nitrofurantoin macrocrystal 100 mg 100 mg PO BID 7 Days #14 cap 12/28/17 capsule Allergies Allergy/AdvReac Type Severity Reaction Status Date / Time metformin Allergy Mild GI UPSET Verified 12/21/17 10:21 phenobarbital Allergy Mild GI UPSET Verified 12/21/17 10:21 Sulfa (Sulfonamide Allergy Mild HIVES Verified 12/21/17 10:21 Antibiotics) tetanus toxoid, adsorbed Allergy Mild RASH Verified 12/21/17 10:21 Review of Systems Constitutional Denies chills, Reports fatigue, Denies frequent falls, Denies headache(s), Reports lethargy, Reports malaise and Reports weakness Eyes Denies blurry vision and Denies diplopia ENT Ears, Nose, Mouth, and Throat: Denies vertigo and Denies headache(s) Cardiovascular Denies chest pain, Denies diaphoresis, Denies syncope, Denies palpitations, Denies dyspnea and Denies slow heart rate Respiratory Denies chest congestion and Denies dyspnea Gastrointestinal Gastrointestinal: Denies abdominal pain, Denies change in bowel habits, Denies constipation, Denies diarrhea, Denies nausea and Denies vomiting Genitourinary Denies dysuria Musculoskeletal Denies abnormal gait, Denies myalgias, Denies arthralgias, Denies numbness and Denies tingling Integumentary/Breasts Denies lesions and Denies rash Neurologic Denies abnormal speech, Denies abnormal gait, Reports confusion, Denies vertigo , Denies syncope, Denies frequent falls, Denies headache(s), Denies focal weakness, Reports memory loss, Denies numbness, Reports convulsions, Reports seizure-like activity, Denies tingling and Reports weakness Psychiatric Reports confusion and Reports memory loss Endocrine Reports fatigue and Denies palpitations Hematologic/Lymphatic Denies easy bleeding and Denies easy bruising [facility] Medical History Dependence on renal dialysis (Chronic 12/18/16) Multiple myeloma (Chronic) Hypertension (Chronic) Other and unspecified hyperlipidemia (Chronic) Controlled type 2 diabetes mellitus (Chronic) Hypothyroidism (acquired) (Chronic 12/16/10) Sleep apnea (Chronic) MGUS (monoclonal gammopathy of unknown significance) (Chronic 2014) Aortic stenosis (Chronic) Nephropathy (Chronic) Vitamin D deficiency (Chronic) Seizures (Chronic) Depression (Chronic 12/16/10) Anemia of chronic disease (Chronic) Renal failure (Chronic) Chronic kidney disease (Chronic 10/22/14) History of PSVT (paroxysmal supraventricular tachycardia) (Chronic 12/16/10) Hx of adenomatous colonic polyps (Inactive 12/16/10) History of vaginal delivery (Resolved) Surgical History History of arthroscopic knee surgery (Resolved 06/2010) History of breast biopsy (Resolved 1989) History of foot surgery (Resolved 1999) History of hysterectomy including cervix (Resolved 03/1977) History of surgery on arm (Resolved 2005) History of tonsillectomy (Resolved 1971) History of ventral hernia repair (Resolved 1991) Hx of cholecystectomy (Resolved 1978) Family History Mother Age: 95 Osteoporosis Father Lung cancer Social History marital status: number of children: 3 household members: spouse lives independently: Yes caregiver/support person: No housing: house pets and animals: No education level: college occupational status: 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 (Retired) 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 bobby/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: [employer]ism travel history: recent ([place], [place]) leisure activities: games (Plays Cards) Smoking Status: Never smoker Tobacco: How many years used: 0 quit status: quit date established (Never Started) second hand exposure: No alcohol intake: never substance use type: does not use Exam Initial Vital Signs Initial Vital Signs: Vital Signs Temperature 97.4 F L 01/02/18 13:20 Pulse Rate 67 01/02/18 13:20 Respiratory Rate 18 01/02/18 13:20 Blood Pressure 97/40 L 01/02/18 13:20 Pulse Oximetry 100 01/02/18 13:20 Const General: cooperative, comfortable, well groomed and No acute distress Orientation: alert, awake and oriented x3 HENMT Head: normal to inspection and normocephalic Eyes Pupils: PERRL EOM: EOM intact bilaterally Resp Effort & Inspection: normal respiratory effort Auscultation: clear to auscultation bilaterally Cardio Rate: regular rate Rhythm: regular rhythm Pulses: radial pulses present GI Inspection: non-distended Palpation: soft, No firm, No rigid and No tender Skin Lesions: no lesions Rashes: no rashes Other: Peritoneal dialysis catheter in place without any surrounding erythema or drainage. Right chest hemodialysis catheter in place without any surrounding erythema or drainage Neuro General: alert, awake and oriented x3 Cranial Nerves: CN's II-XI intact bilaterally Cognition: normal cognition Speech: speech normal Motor: muscle tone normal throughout Sensory Exam: no sensory deficits noted Extrem Other: Short leg cast left lower extremity otherwise no gross deformities Psych Appearance: grossly normal and well kempt Course Orders Ordered: ED Orders 01/02/18 14:07 CT head/brain wo con Stat 01/02/18 14:45 Complete Blood Count AUTO DIFF Stat Comprehensive Metabolic Panel Stat Lipase Stat Phenytoin / Dilantin Stat Thyroid Stimulating Hormone Stat 01/02/18 18:38 Body Fluid Culture Stat Cell Count w Diff Body Fluid Stat 01/02/18 18:56 Blood Culture Stat Ceftriaxone Sodium/Dextrose (Rocephin) 1 gm in 50 mls @ 100 mls/hr IV NOW ONE Stop: 01/02/18 19:28 Vital Signs - 8 hr 01/02/18 13:20 01/02/18 14:00 01/02/18 14:30 Temperature 97.4 F L Pulse Rate 67 63 63 Respiratory Rate 18 15 Blood Pressure 97/40 L Blood Pressure [Right Arm] 121/51 L 103/38 L Pulse Oximetry 100 97 93 01/02/18 16:00 01/02/18 17:00 01/02/18 18:00 Temperature Pulse Rate 60 Respiratory Rate Blood Pressure Blood Pressure [Right Arm] 94/40 L 97/33 L 99/37 L Pulse Oximetry 97 MDM - Weakness Lab Data Attestation: I reviewed the patient's lab results. Result diagrams: 01/02/18 14:45 01/02/18 14:45 Lab Results 01/02/18 01/02/18 01/02/18 Range/Units 14:45 14:45 14:45 WBC 13.1 H (4.5-11.0) X10^3/uL RBC 3.37 L (4.0-5.2) X10^6/uL Hgb 11.2 L (12.0-16.0) g/dL Hct 33.2 L (36-46) % MCV 98.5 D (80-100) fL MCH 33.2 (26-34) PG MCHC 33.7 (30-36) % RDW 18.9 H (11.6-14.8) % Plt Count 171 (150-400) X10^3/uL Neut % (Auto) 84.4 H (50-75) % Lymph % (Auto) 8.4 L (25-40) % Ida % (Auto) 5.1 (3-14) % Eos % (Auto) 1.4 L (2-4) % Baso % (Auto) 0.7 (0-2) % Neut # (Auto) 77558 H (2345-9630) /uL Sodium 141 Cancelled (137-145) mmol/L Potassium 3.5 Cancelled (3.4-5.1) mmol/L Chloride 103 Cancelled (98-107) mmol/L Carbon Dioxide 16 L Cancelled (22-32) mmol/L BUN 77 H Cancelled (7-17) mg/dL Creatinine 10.20 H* Cancelled (0.52-1.04) mg/dL Estimated GFR 3.8 L Cancelled (>60) mL/min BUN/Creatinine Ratio 7.5 Cancelled (6-22) Glucose 239 H Cancelled (80-110) mg/dL Calcium 8.4 Cancelled (8.4-10.2) mg/dL Total Bilirubin 0.6 Cancelled (0.2-1.3) mg/dL AST 24 Cancelled (14-36) IU/L ALT 44 Cancelled (9-52) IU/L Alkaline Phosphatase 173 H Cancelled (38-126) U/L Total Protein 6.7 Cancelled (6.3-8.2) g/dL Albumin 3.7 Cancelled (3.5-5.0) g/dL Globulin 3.0 Cancelled (1.7-4.1) g/dL Albumin/Globulin Ratio 1.2 Cancelled (1.0-2.8) Lipase 107 Cancelled (23-300) U/L TSH (0.47-4.68) uIU/mL Specimen Hemolysis Cancelled Phenytoin < 3.0 L (10-20) ug/mL 01/02/18 Range/Units 14:45 WBC (4.5-11.0) X10^3/uL RBC (4.0-5.2) X10^6/uL Hgb (12.0-16.0) g/dL Hct (36-46) % MCV (80-100) fL MCH (26-34) PG MCHC (30-36) % RDW (11.6-14.8) % Plt Count (150-400) X10^3/uL Neut % (Auto) (50-75) % Lymph % (Auto) (25-40) % Ida % (Auto) (3-14) % Eos % (Auto) (2-4) % Baso % (Auto) (0-2) % Neut # (Auto) (1787-2281) /uL Sodium (137-145) mmol/L Potassium (3.4-5.1) mmol/L Chloride (98-107) mmol/L Carbon Dioxide (22-32) mmol/L BUN (7-17) mg/dL Creatinine (0.52-1.04) mg/dL Estimated GFR (>60) mL/min BUN/Creatinine Ratio (6-22) Glucose (80-110) mg/dL Calcium (8.4-10.2) mg/dL Total Bilirubin (0.2-1.3) mg/dL AST (14-36) IU/L ALT (9-52) IU/L Alkaline Phosphatase (38-126) U/L Total Protein (6.3-8.2) g/dL Albumin (3.5-5.0) g/dL Globulin (1.7-4.1) g/dL Albumin/Globulin Ratio (1.0-2.8) Lipase (23-300) U/L TSH 3.51 (0.47-4.68) uIU/mL Specimen Hemolysis Phenytoin (10-20) ug/mL MDM Narrative Medical decision making narrative: Patient does have an elevated white blood cell count however no other signs of an infection. She has no abdominal pain. The her peritoneal dialysis site looks well. She does have an elevated creatinine however she is on dialysis. She is currently on Dilantin. Her Dilantin level today was low. She does state that she takes it at night. She did take it last evening. The symptoms that her described sound very much like seizures. It does sound like she has a postictal state afterwards. According to the patient and the she did not have any seizures after her head bleed approximately 1 year ago. Given her seizure-like activity, the question about Dilantin, her need for dialysis I feel that inpatient admission is required for further evaluation. I talked to at [facility] who accepts the patient in transfer. He recommended obtaining blood cultures and starting the patient on antibiotics which I did. This was the closest hospital with bed availability. I discussed the transport with the patient and her who are at bedside. I did discuss the antibiotics and the blood cultures. They expressed understanding and agreement with this transport. Patient is stable for transport. Discharge Plan Departure Patient Disposition: [facility] Clinical Impression: Seizure-like activity, End stage renal disease on dialysis, Fatigue Prescriptions: No Action levothyroxine 100 MCG tablet 100 mcg PO QAM Qty: 90 RF: 3 furosemide 80 MG tablet 80 mg PO DAILY Qty: 0 RF: 0 duloxetine 30 MG capsule,delayed release(DR/EC) 30 mg PO BID Qty: 0 RF: 0 insulin aspart U-100 [Novolog PenFill U-100 Insulin] 100 UNIT/1 ML cartridge 1 dose SQ DIRECTED Qty: 0 RF: 0 multivitamin [Multiple Vitamins] tablet 1 tab PO DAILY Qty: 90 RF: 0 phenytoin sodium extended [Dilantin Extended] 100 mg capsule 300 mg PO HS Qty: 0 RF: 0 losartan 50 mg tablet 50 mg PO QAM Qty: 0 RF: 0 digoxin [Lanoxin] 250 mcg tablet 125 mcg PO QPM Qty: 45 RF: 3 nitrofurantoin macrocrystal 100 mg capsule 100 mg PO BID 7 Days Qty: 14 RF: 0 cholecalciferol (vitamin D3) 5,000 unit capsule 5,000 unit PO QMWF RF: 0 atenolol 25 mg tablet 25 mg PO QPM Qty: 90 RF: 3 cholestyramine-aspartame [Cholestyramine Light] 4 gram powder in packet 4 gram PO QACBREAK Qty: 30 RF: 11 sevelamer carbonate [Renvela] 800 mg tablet 2 tab PO TIDWM RF: 0 insulin glargine [Lantus U-100 Insulin] 100 UNIT/1 ML solution 1 dose SQ BID RF: 0 acetaminophen-codeine 300-30 mg tablet 1 tab PO TID PRN (Reason: PAIN) RF: 0 tramadol 50 mg Tablet 50 mg PO PRN PRN (Reason: pain) RF: 0 dexamethasone 4 mg tablet 20 mg PO QWEEK RF: 0 gabapentin 100 mg capsule 300 mg PO QPM RF: 0 bortezomib [Velcade] 3.5 mg Recon Soln 1 dose subcut QWEEK RF: 0 opium tincture 10 mg/mL (morphine) Tincture 0.6 ml PO PRN PRN (Reason: as directed) RF: 0 diphenoxylate-atropine [Lomotil] 2.5-0.025 mg tablet 1 tab PO Q6-8H PRN (Reason: diarrhea) RF: 0
--- NOTE | 2018-01-02 14:07 | DI.CT.S_ITS ---
PROCEDURE: CT HEAD/BRAIN WO CON INDICATIONS: seizure like activity TECHNIQUE: Noncontrast 4.5 mm thick angled axial sections acquired from the foramen magnum to the vertex, with coronal and sagittal reformats. For radiation dose reduction, the following was used: automated exposure control, adjustment of mA and/or kV according to patient size. COMPARISON: [facility], CT, HEAD WITHOUT CONTRAST, 11/27/2016, 18:48. [facility], CT, HEAD WITHOUT CONTRAST, 12/01/2016, 15:31. FINDINGS: Image quality: This examination is limited by involuntary motion artifact. CSF spaces: Basal cisterns are patent. No extra-axial fluid collections. The ventricles are symmetric in size and shape. Brain: No intracranial bleeds or masses. The previously seen left frontal lobe hemorrhage has resolved the. There is cerebral volume loss for age, with resultant ventricular and sulcal prominence. There are periventricular and deep white matter chronic small vessel ischemic changes. There is intracranial internal carotid artery atherosclerosis. Skull and face: Calvarium and visualized facial bones appear intact, without suspicious lesions. Sinuses: Visualized sinuses and mastoids are clear. IMPRESSION: No acute intracranial process is seen. No acute hemorrhage is seen. The previously seen left frontal hemorrhage has resolved. Dictated by: Yahir Easton M.D. on 01/02/2018 at 13:31 Approved by: Yahir Easton M.D. on 01/02/2018 at 13:33
[2018-01-02 14:52] LABS: Add Manual Diff / Slide Review NO; Basophils Percent Auto 0.7 % (0-2); Eosinophils Percent Auto 1.4 % (2-4); Hematocrit 33.2 % (36-46); Hemoglobin 11.2 g/dL (12.0-16.0); Lymphocytes Percent Auto 8.4 % (25-40); Mean Corpuscular HGB Conc 33.7 % (30-36); Mean Corpuscular Hemoglobin 33.2 PG (26-34); Mean Corpuscular Volume 98.5 fL (80-100); Monocytes Percent Auto 5.1 % (3-14); Neutrophils Absolute Auto 11100 /uL (3000-5900); Neutrophils Percent Auto 84.4 % (50-75); Platelet Count 171 X10^3/uL (150-400); Red Blood Cell Count 3.37 X10^6/uL (4.0-5.2); Red Cell Distribution Width 18.9 % (11.6-14.8); White Blood Cell Count 13.1 X10^3/uL (4.5-11.0)
[2018-01-02 15:06] LABS: Alanine Aminotransferase 44 IU/L (9-52); Albumin 3.7 g/dL (3.5-5.0); Albumin Globulin Ratio 1.2 (1.0-2.8); Alkaline Phosphatase 173 U/L (38-126); Aspartate Aminotransferase 24 IU/L (14-36); BUN Creatinine Ratio 7.5 (6-22); Bilirubin Total 0.6 mg/dL (0.2-1.3); Blood Urea Nitrogen 77 mg/dL (7-17); Calcium 8.4 mg/dL (8.4-10.2); Carbon Dioxide 16 mmol/L (22-32); Chloride 103 mmol/L (98-107); Estimated Glomerular Filt Rate 3.8 mL/min (>60); Glucose 239 mg/dL (80-110); HEMOLYSIS 20 (0-50); Lipase 107 U/L (23-300); Potassium 3.5 mmol/L (3.4-5.1); Sodium 141 mmol/L (137-145); Total Protein 6.7 g/dL (6.3-8.2)
[2018-01-02 15:11] LABS: Phenytoin / Dilantin < 3.0 ug/mL (10-20)
[2018-01-02 15:35] LABS: Thyroid Stimulating Hormone 3.51 uIU/mL (0.47-4.68)
--- NOTE | 2018-01-02 19:22 | PC.NURSE ---
Patient's spouse assisted with obtaining Peritoneal fluid. Pt tolerated with out complaint or complications. Specimen walked down to lab and delivered.
[2018-01-02] MEDS: CEFTRIAXONE 1 GM/50 ML FROZ.PIGGY IV (19:24)
[2018-01-02 19:47] LABS: Body Fluid Tot Nucleated Cells 189 /uL
[2018-01-02 20:03] LABS: Body Fluid Red Blood Cells < 1000 /uL
[2018-01-02 20:04] LABS: Body Fluid Appearance CLEAR; Body Fluid Color COLORLESS
[2018-01-02 20:05] LABS: Body Fluid Clotted? NO CLOTS PRESENT
[2018-01-02 20:26] LABS: Mononuclear WBC Body Fluid 80 %; Polynuclear WBC Body Fluid 18 %
[2018-01-02 20:27] LABS: Eosinophils Body Fluid 0 %; Other Cells Body Fluid 2 %
--- NOTE | 2018-01-02 21:06 | PC.NURSE ---
Patient wanting to take her regular medications. Per Dr. Cuco Roque, spouse is going home to get medications.
== END 2018-01-02 23:04 | disposition short-term general hospital (02) ==
PROVIDERS: Emergency Provider Emergency Medicine; PCP Internal Medicine
DX: R56.9 Unspecified convulsions (principal); N18.6 End stage renal disease; R53.83 Other fatigue; Z99.2 Dependence on renal dialysis
CPT/HCPCS: 36415; 36591; 70450; 80053; 80185; 83690; 84443; 85025; 87040; 87070; 87075; 87205; 89051; 96365; 99283; 99284

== ENCOUNTER 2018-01-14 15:18 | Emergency (ER) | payer MEDICARE, SELFPAY ==
[2018-01-14] VITALS (8 sets, daily range): BP systolic 71–138; BP diastolic 36–74; PULSE 64–69; RESP 15–20; TEMP 36.4–36.8; O2SAT 97–100
--- NOTE | 2018-01-14 15:42 | ED.GENADULT ---
HPI - General Adult General Chief complaint: Weakness Stated complaint: low blood pressure Time Seen by Provider: 01/14/18 15:39 Related Data Home Medications Medication Instructions Recorded Confirmed insulin aspart U-100 [Novolog 1 dose SQ DIRECTED #0 12/07/16 01/10/18 PenFill U-100 Insulin] insulin glargine [Lantus U-100 1 dose SQ BID 08/21/17 01/10/18 Insulin] sevelamer carbonate [Renvela] 2 tab PO TIDWM 08/21/17 01/10/18 losartan 50 mg tablet 50 mg PO QAM #0 tab 09/27/17 01/10/18 cholecalciferol (vitamin D3) 5,000 5,000 unit PO QMWF 11/22/17 01/10/18 unit capsule acetaminophen-codeine 1 tab PO TID PRN 01/02/18 01/10/18 bortezomib [Velcade] 1 dose SUBCUT QWEEK 01/02/18 01/10/18 dexamethasone 20 mg PO QWEEK 01/02/18 01/10/18 diphenoxylate-atropine [Lomotil] 1 tab PO Q6-8H PRN 01/02/18 01/10/18 gabapentin 300 mg PO QPM 01/02/18 01/10/18 opium tincture 0.6 ml PO PRN PRN 01/02/18 01/10/18 tramadol 50 mg PO PRN PRN 01/02/18 01/10/18 duloxetine 30 mg capsule,delayed 30 mg PO DAILY #0 cap 01/10/18 01/10/18 release levetiracetam 500 mg tablet 500 mg PO DAILY tab 01/10/18 01/10/18 Previous Rx's Medication Instructions Recorded levothyroxine 100 mcg PO QAM #90 tab 04/06/16 atenolol 25 mg tablet 25 mg PO QPM #90 tab 09/03/17 multivitamin tablet 1 tab PO DAILY #90 tab 09/27/17 digoxin 250 mcg tablet 125 mcg PO QPM #45 tab 10/04/17 cholestyramine-aspartame 4 gram 4 gram PO QACBREAK #30 packet 10/09/17 oral powder for susp in a packet Allergies Allergy/AdvReac Type Severity Reaction Status Date / Time metformin Allergy Mild GI UPSET Verified 01/10/18 13:51 phenobarbital Allergy Mild GI UPSET Verified 01/10/18 13:51 Sulfa (Sulfonamide Allergy Mild HIVES Verified 01/10/18 13:51 Antibiotics) tetanus toxoid, adsorbed Allergy Mild RASH Verified 01/10/18 13:51 PFSH Social History marital status: number of children: 3 household members: spouse lives independently: Yes caregiver/support person: No housing: house pets and animals: No education level: college 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: [employer] travel history: recent ([place], [place]) leisure activities: games (Plays Cards) Smoking Status: Never smoker Tobacco: How many years used: 0 quit status: quit date established (Never Started) second hand exposure: No alcohol intake: never substance use type: does not use Exam Initial Vital Signs Initial Vital Signs: Vital Signs Temperature 97.5 F L 01/14/18 15:20 Pulse Rate 65 01/14/18 15:20 Respiratory Rate 18 01/14/18 15:20 Blood Pressure 71/45 L 01/14/18 15:20 Pulse Oximetry 98 01/14/18 15:20 Course Vital Signs - 8 hr 01/14/18 15:20 Temperature 97.5 F L Pulse Rate 65 Respiratory Rate 18 Blood Pressure 71/45 L Pulse Oximetry 98 Discharge Plan Departure Prescriptions: No Action levothyroxine 100 MCG tablet 100 mcg PO QAM Qty: 90 RF: 3 insulin aspart U-100 [Novolog PenFill U-100 Insulin] 100 UNIT/1 ML cartridge 1 dose SQ DIRECTED Qty: 0 RF: 0 multivitamin [Multiple Vitamins] tablet 1 tab PO DAILY Qty: 90 RF: 0 losartan 50 mg tablet 50 mg PO QAM Qty: 0 RF: 0 digoxin [Lanoxin] 250 mcg tablet 125 mcg PO QPM Qty: 45 RF: 3 cholecalciferol (vitamin D3) 5,000 unit capsule 5,000 unit PO QMWF RF: 0 atenolol 25 mg tablet 25 mg PO QPM Qty: 90 RF: 3 cholestyramine-aspartame [Cholestyramine Light] 4 gram powder in packet 4 gram PO QACBREAK Qty: 30 RF: 11 levetiracetam [Keppra] 500 mg tablet 500 mg PO DAILY RF: 0 duloxetine 30 mg capsule,delayed release(DR/EC) 30 mg PO DAILY Qty: 0 RF: 0 sevelamer carbonate [Renvela] 800 mg tablet 2 tab PO TIDWM RF: 0 insulin glargine [Lantus U-100 Insulin] 100 UNIT/1 ML solution 1 dose SQ BID RF: 0 acetaminophen-codeine 300-30 mg tablet 1 tab PO TID PRN (Reason: PAIN) RF: 0 tramadol 50 mg Tablet 50 mg PO PRN PRN (Reason: pain) RF: 0 dexamethasone 4 mg tablet 20 mg PO QWEEK RF: 0 gabapentin 100 mg capsule 300 mg PO QPM RF: 0 bortezomib [Velcade] 3.5 mg Recon Soln 1 dose subcut QWEEK RF: 0 opium tincture 10 mg/mL (morphine) Tincture 0.6 ml PO PRN PRN (Reason: as directed) RF: 0 diphenoxylate-atropine [Lomotil] 2.5-0.025 mg tablet 1 tab PO Q6-8H PRN (Reason: diarrhea) RF: 0
[2018-01-14] MEDS: SODIUM CHLORIDE 0.9% 1,000 ML 500 ML IV (17:30)
--- NOTE | 2018-01-14 19:30 | PC.NURSE ---
Patient with 5 beat run of V-tach; Patient asymptomatic; Dr. Norwood notified;
--- NOTE | 2018-01-16 16:59 | ED.WEAKNESS ---
HPI - Weakness General Chief complaint: Weakness Stated complaint: low blood pressure Time Seen by Provider: 01/14/18 15:39 Source: patient and family Mode of arrival: ambulatory Limitations: no limitations History of Present Illness HPI Narrative: pt is ESRD on PD was [facility] today and was reported to have had low BP. pt states that for the past several days she has had problems with going from sitting to standing and from laying to sitting. no fevers. does PD nightly. States she has not been eating and drinking much lately. no fevers. still produces urine. has had diarrhea for months now. no rashes. Related Data Home Medications Medication Instructions Recorded Confirmed insulin aspart U-100 [Novolog 1 dose SQ DIRECTED #0 12/07/16 01/14/18 PenFill U-100 Insulin] insulin glargine [Lantus U-100 1 dose SQ BID 08/21/17 01/14/18 Insulin] sevelamer carbonate [Renvela] 2 tab PO TIDWM 08/21/17 01/14/18 losartan 50 mg tablet 50 mg PO QAM #0 tab 09/27/17 01/14/18 cholecalciferol (vitamin D3) 5,000 5,000 unit PO QMWF 11/22/17 01/14/18 unit capsule acetaminophen-codeine 1 tab PO TID PRN 01/02/18 01/14/18 bortezomib [Velcade] 1 dose SUBCUT QWEEK 01/02/18 01/14/18 dexamethasone 20 mg PO QWEEK 01/02/18 01/14/18 diphenoxylate-atropine [Lomotil] 1 tab PO Q6-8H PRN 01/02/18 01/14/18 gabapentin 200 mg PO QPM 01/02/18 01/14/18 opium tincture 0.6 ml PO PRN PRN 01/02/18 01/14/18 tramadol 50 mg PO PRN PRN 01/02/18 01/14/18 duloxetine 30 mg capsule,delayed 30 mg PO DAILY #0 cap 01/10/18 01/14/18 release levetiracetam 500 mg tablet 500 mg PO DAILY tab 01/10/18 01/14/18 acyclovir 1 tab PO DAILY 01/14/18 01/14/18 cholestyramine-aspartame 1 packet PO DAILY 01/14/18 01/14/18 [Prevalite] ipratropium bromide 2 spray INTRANASAL TID PRN 01/14/18 01/14/18 levofloxacin 1 tab PO DAILY 01/14/18 01/14/18 ondansetron 1 tab PO PRN PRN 01/14/18 01/14/18 Previous Rx's Medication Instructions Recorded levothyroxine 100 mcg PO QAM #90 tab 04/06/16 atenolol 25 mg tablet 25 mg PO QPM #90 tab 09/03/17 multivitamin tablet 1 tab PO DAILY #90 tab 09/27/17 digoxin 250 mcg tablet 125 mcg PO QPM #45 tab 10/04/17 cholestyramine-aspartame 4 gram 4 gram PO QACBREAK #30 packet 10/09/17 oral powder for susp in a packet Allergies Allergy/AdvReac Type Severity Reaction Status Date / Time metformin Allergy Mild GI UPSET Verified 01/10/18 13:51 phenobarbital Allergy Mild GI UPSET Verified 01/10/18 13:51 Sulfa (Sulfonamide Allergy Mild HIVES Verified 01/10/18 13:51 Antibiotics) tetanus toxoid, adsorbed Allergy Mild RASH Verified 01/10/18 13:51 Review of Systems Constitutional Reports chills, Denies fever(s), Denies headache(s), Reports lethargy, Reports malaise and Denies weakness ENT Ears, Nose, Mouth, and Throat: Reports dizziness and Denies headache(s) Cardiovascular Denies chest pain and Denies dyspnea Respiratory Denies dyspnea and Denies wheezing Gastrointestinal Gastrointestinal: Denies abdominal pain, Reports diarrhea, Denies nausea and Denies vomiting Genitourinary Denies dysuria Musculoskeletal Denies atrophy, Denies arthralgias and Denies numbness Neurologic Denies behavioral changes, Denies confusion, Reports dizziness, Denies headache(s), Denies memory loss, Denies numbness and Denies weakness Psychiatric Denies behavioral changes, Denies confusion and Denies memory loss Hematologic/Lymphatic Denies easy bleeding and Denies easy bruising Allergic/Immunologic Denies wheezing [facility] Medical History Peritoneal dialysis catheter in place (Chronic) Dependence on renal dialysis (Chronic 12/18/16) Multiple myeloma (Chronic) Hypertension (Chronic) Other and unspecified hyperlipidemia (Chronic) Controlled type 2 diabetes mellitus (Chronic) Hypothyroidism (acquired) (Chronic 12/16/10) Sleep apnea (Chronic) MGUS (monoclonal gammopathy of unknown significance) (Chronic 2014) Aortic stenosis (Chronic) Nephropathy (Chronic) Vitamin D deficiency (Chronic) Seizures (Chronic) Depression (Chronic 12/16/10) Anemia of chronic disease (Chronic) Renal failure (Chronic) Chronic kidney disease (Chronic 10/22/14) History of PSVT (paroxysmal supraventricular tachycardia) (Chronic 12/16/10) Hx of adenomatous colonic polyps (Inactive 12/16/10) History of vaginal delivery (Resolved) Surgical History History of arthroscopic knee surgery (Resolved 06/2010) History of breast biopsy (Resolved 1989) History of foot surgery (Resolved 1999) History of hysterectomy including cervix (Resolved 03/1977) History of surgery on arm (Resolved 2005) History of tonsillectomy (Resolved 1971) History of ventral hernia repair (Resolved 1991) Hx of cholecystectomy (Resolved 1978) Family History Mother Age: 95 Osteoporosis Father Lung cancer Social History marital status: number of children: 3 household members: spouse lives independently: Yes caregiver/support person: No housing: house pets and animals: No education level: college occupational status: other (Retired) 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 travel history: recent ([place], [place]) leisure activities: games (Plays Cards) Smoking Status: Never smoker Tobacco: How many years used: 0 quit status: quit date established (Never Started) second hand exposure: No alcohol intake: never substance use type: does not use Exam Initial Vital Signs Initial Vital Signs: Vital Signs Temperature 97.5 F L 01/14/18 15:20 Pulse Rate 65 01/14/18 15:20 Respiratory Rate 18 01/14/18 15:20 Blood Pressure 71/45 L 01/14/18 15:20 Pulse Oximetry 98 01/14/18 15:20 Const General: cooperative, comfortable, well developed, well groomed and No acute distress Orientation: alert, awake and oriented x3 Chest Chest: normal inspection of the chest Resp Effort & Inspection: normal respiratory effort Auscultation: clear to auscultation bilaterally Cardio Rate: regular rate Rhythm: regular rhythm Pulses: radial pulses present GI Inspection: non-distended Palpation: soft and No tender Skin Lesions: no lesions Rashes: no rashes Neuro General: alert, awake and oriented x3 Cognition: normal cognition Sensory Exam: no sensory deficits noted Extrem General: normal to inspection and capillary refill normal Course Orders Ordered: Discontinued Medications Sodium Chloride (Normal Saline 0.9%) 1,000 mls @ 500 mls/hr IV BOLUS ONE Stop: 01/14/18 18:10 Last Infusion: 01/14/18 19:54 Dose: 0 mls/hr Admin: 01/14/18 17:30 Dose: 500 mls/hr MDM - Weakness Lab Data Attestation: I reviewed the patient's lab results. ECG Data Attestation: I personally reviewed and interpreted this ECG as follows: Prior ECG tracings: not available for review Interpretation: sinus rhythm rate [address] LVH non-specific ST/T wave changes MDM Narrative Medical decision making narrative: did not repeat labs here in the ED because she had them in the oncology clinic just a few hours ago. she does have low K and she staes that she did not want any here because she had a bunch at home. she has been having diarrhea and not eating or drinking much. she was orthostatic here in the ER. her symptoms did improve with fluids. we did discuss her diarrhea and possible treatments. we did discuss the imprtence of drinking. no fevers. I doubt bacterial infection or sepsis. she has a follow up in 48 hours. she wants to go home. she was given return precautions. she and her expressed understanding and agreement with plan. Discharge Plan Departure Patient Disposition: Home Clinical Impression: Dehydration, Hypokalemia Discharge Date/Time: 01/14/18 19:55 Interventions: ED Discharge Assessment Last Done: 01/14/18 19:55 Instructions: DI for Dehydration -- Adult, DI for Hypokalemia Activity Restrictions/Additional Instructions: I would recommend that this evening you take 40 mEq of potassium and tomorrow you take 20 mEq of potassium. After that be sure to discuss any supplementation with your renal doctor. Also recommend that you increase your fluid intake. Keep your scheduled appointment that you have with your renal doctor on Sunday. Return to the emergency department for any new symptoms, worsening symptoms, chest pain or any other concerning symptoms. Prescriptions: No Action levothyroxine 100 MCG tablet 100 mcg PO QAM Qty: 90 RF: 3 insulin aspart U-100 [Novolog PenFill U-100 Insulin] 100 UNIT/1 ML cartridge 1 dose SQ DIRECTED Qty: 0 RF: 0 multivitamin [Multiple Vitamins] tablet 1 tab PO DAILY Qty: 90 RF: 0 losartan 50 mg tablet 50 mg PO QAM Qty: 0 RF: 0 digoxin [Lanoxin] 250 mcg tablet 125 mcg PO QPM Qty: 45 RF: 3 cholecalciferol (vitamin D3) 5,000 unit capsule 5,000 unit PO QMWF RF: 0 atenolol 25 mg tablet 25 mg PO QPM Qty: 90 RF: 3 cholestyramine-aspartame [Cholestyramine Light] 4 gram powder in packet 4 gram PO QACBREAK Qty: 30 RF: 11 levetiracetam [Keppra] 500 mg tablet 500 mg PO DAILY RF: 0 duloxetine 30 mg capsule,delayed release(DR/EC) 30 mg PO DAILY Qty: 0 RF: 0 sevelamer carbonate [Renvela] 800 mg tablet 2 tab PO TIDWM RF: 0 insulin glargine [Lantus U-100 Insulin] 100 UNIT/1 ML solution 1 dose SQ BID RF: 0 acetaminophen-codeine 300-30 mg tablet 1 tab PO TID PRN (Reason: PAIN) RF: 0 tramadol 50 mg Tablet 50 mg PO PRN PRN (Reason: pain) RF: 0 dexamethasone 4 mg tablet 20 mg PO QWEEK RF: 0 gabapentin 100 mg capsule 200 mg PO QPM RF: 0 bortezomib [Velcade] 3.5 mg Recon Soln 1 dose subcut QWEEK RF: 0 opium tincture 10 mg/mL (morphine) Tincture 0.6 ml PO PRN PRN (Reason: as directed) RF: 0 diphenoxylate-atropine [Lomotil] 2.5-0.025 mg tablet 1 tab PO Q6-8H PRN (Reason: diarrhea) RF: 0 levofloxacin 250 mg tablet 1 tab PO DAILY RF: 0 acyclovir 400 mg tablet 1 tab PO DAILY RF: 0 ipratropium bromide 42 mcg (0.06 %) spray,non-aerosol 2 spray Intranasal TID PRN (Reason: as directed) RF: 0 ondansetron 4 mg tablet,disintegrating 1 tab PO PRN PRN (Reason: Nausea) RF: 0 cholestyramine-aspartame [Prevalite] 4 gram powder in packet 1 packet PO DAILY RF: 0
== END 2018-01-14 19:55 | disposition home or self-care (01) ==
PROVIDERS: Emergency Provider Emergency Medicine; PCP Internal Medicine
DX: E86.0 Dehydration (principal); E87.6 Hypokalemia
CPT/HCPCS: 93005; 93010; 93041; 96360; 96361; 99284; 99285

== ENCOUNTER → 2018-01-17 13:13 | Outpatient (CLI) | payer MEDICARE, SELFPAY ==
[2018-01-17 13:19] LABS: Bacteria Urine None Seen
[2018-01-17 16:04] LABS: Bilirubin Urine UA NEGATIVE (NEGATIVE); Color Urine UA YELLOW; Glucose Urine UA 1+ g/dL (Normal); Ketones Urine UA TRACE (NEGATIVE); Leukocyte Esterase Urine UA 2+ (NEGATIVE); Nitrite Urine UA NEGATIVE (Negative); Occult Blood Urine UA 3+ (Negative); Protein Urine UA 3+ (Negative); Urobilinogen Urine UA 0.2 E.U./dL (0.2); pH Urine UA 5.5 (4.5-8.0)
[2018-01-17 16:06] LABS: Appearance Urine UA TURBID
[2018-01-17 16:07] LABS: RBC Urine 30-100/HPF (0-5/HPF); Squamous Epithelial Cell Urine 1-5 /HPF; WBC Urine >100/HPF (0-5/HPF)
== END ==
PROVIDERS: PCP Internal Medicine; Visit Provider Student in an Organized Health Care Education/Training Program
DX: N30.00 Acute cystitis without hematuria (principal)
CPT/HCPCS: 81001; 87077; 87086

== ENCOUNTER 2018-01-22 16:49 | Emergency (ER) | payer MEDICARE, SELFPAY ==
[2018-01-22] VITALS (8 sets, daily range): BP systolic 96–111; BP diastolic 37–80; PULSE 53–58; RESP 9–17; TEMP 36.5; O2SAT 92–100
[2018-01-22 17:46] LABS: Add Manual Diff / Slide Review NO; Basophils Percent Auto 0.6 % (0-2); Eosinophils Percent Auto 1.5 % (2-4); Hemoglobin 9.2 g/dL (12.0-16.0); Lymphocytes Percent Auto 13.2 % (25-40); Mean Corpuscular HGB Conc 35.1 % (30-36); Mean Corpuscular Hemoglobin 34.1 PG (26-34); Mean Corpuscular Volume 97.3 fL (80-100); Monocytes Percent Auto 8.8 % (3-14); Neutrophils Absolute Auto 7400 /uL (3000-5900); Neutrophils Percent Auto 75.9 % (50-75); Platelet Count 144 X10^3/uL (150-400); Red Blood Cell Count 2.71 X10^6/uL (4.0-5.2); Red Cell Distribution Width 17.7 % (11.6-14.8); White Blood Cell Count 9.7 X10^3/uL (4.5-11.0)
[2018-01-22 17:52] LABS: Hematocrit 26.4 % (36-46)
[2018-01-22 17:58] LABS: Prothrombin Time 11.1 SECONDS (10.1-12.7)
--- NOTE | 2018-01-22 17:58 | PC.NURSE ---
Patient does home periotneal dialysis has had increase confusion and weakness. Appears dehydrated. Patient neurologically intact however family reports some confusion at home. Patient recently treated for urinary tract infection and new fungal infection
[2018-01-22 18:01] LABS: PTT Partial Thromboplastin Tim 28 SECONDS (26.4-36.2)
[2018-01-22 18:03] LABS: Alanine Aminotransferase 26 IU/L (9-52); Albumin 2.9 g/dL (3.5-5.0); Albumin Globulin Ratio 1.1 (1.0-2.8); Alkaline Phosphatase 110 U/L (38-126); Aspartate Aminotransferase 16 IU/L (14-36); BUN Creatinine Ratio 8.3 (6-22); Bilirubin Total 0.6 mg/dL (0.2-1.3); Blood Urea Nitrogen 59 mg/dL (7-17); Calcium 7.9 mg/dL (8.4-10.2); Carbon Dioxide 24 mmol/L (22-32); Chloride 93 mmol/L (98-107); Estimated Glomerular Filt Rate 5.7 mL/min (>60); Globulin 2.7 g/dL (1.7-4.1); Glucose 172 mg/dL (80-110); HEMOLYSIS < 15 (0-50); Lipase 133 U/L (23-300); Potassium 3.1 mmol/L (3.4-5.1); Sodium 131 mmol/L (137-145); Total Protein 5.6 g/dL (6.3-8.2)
[2018-01-22 18:04] LABS: Lactate (Lactic Acid) 2.7 mmol/L (0.7-2.1)
[2018-01-22 18:14] LABS: Troponin I 0.033 ng/mL (0.01-0.034)
--- NOTE | 2018-01-22 18:49 | ED_ITS ---
HPI - Weakness General Chief complaint: Weakness Stated complaint: hypotension, decreased mental status. Time Seen by Provider: 01/22/18 17:04 Source: patient Mode of arrival: ambulatory Limitations: no limitations History of Present Illness HPI Narrative: Patient is a 72-year-old female who has multiple comorbidities including end-stage renal disease he is currently transitioning from peritoneal to hemo dialysis, presenting with increased weakness. She had no fever no abdominal pain no chest pain or shortness of breath. She was seen here last week and was diagnosed with dehydration and given a 500 cc bolus. She overall has had a slow decline. She was hospitalized at [facility] 01/02/2018 she said for several days. Transfer there for dialysis and seizure-like activity. She was also complaining of fatigue at that time. I believe it was there that they found the peritoneal dialysis was not working well for her and transitioned her to hemodialysis. She continues to have a catheter placed. She said she went last week. MD Complaint: generalized weakness Duration: constant Location: generalized Related Data Home Medications Medication Instructions Recorded Confirmed insulin aspart U-100 [Novolog 1 dose SQ DIRECTED #0 12/07/16 01/22/18 PenFill U-100 Insulin] insulin glargine [Lantus U-100 14 units SQ QPM 08/21/17 01/22/18 Insulin] sevelamer carbonate [Renvela] 2 tab PO TIDWM 08/21/17 01/22/18 losartan 50 mg tablet 50 mg PO QAM #0 tab 09/27/17 01/22/18 cholecalciferol (vitamin D3) 5,000 5,000 unit PO QMWF 11/22/17 01/22/18 unit capsule acetaminophen-codeine 1 tab PO TID PRN 01/02/18 01/22/18 bortezomib [Velcade] 1 dose SUBCUT QWEEK 01/02/18 01/22/18 dexamethasone 20 mg PO QWEEK 01/02/18 01/22/18 diphenoxylate-atropine [Lomotil] 1 tab PO Q6-8H PRN 01/02/18 01/22/18 gabapentin 200 mg PO QPM 01/02/18 01/22/18 opium tincture 0.6 ml PO PRN PRN 01/02/18 01/22/18 tramadol 50 mg PO PRN PRN 01/02/18 01/22/18 duloxetine 30 mg capsule,delayed 30 mg PO BID #0 cap 01/10/18 01/22/18 release levetiracetam 500 mg tablet 500 mg PO DAILY tab 01/10/18 01/22/18 cholestyramine-aspartame 1 packet PO DAILY 01/14/18 01/22/18 [Prevalite] ipratropium bromide 2 spray INTRANASAL TID PRN 01/14/18 01/22/18 B complex-vitamin C-folic acid 1 tab PO QAM 01/22/18 01/22/18 [Nickie-Camilo] fluconazole 1 tab PO QDX10 01/22/18 01/22/18 furosemide 80 mg PO QAM 01/22/18 01/22/18 levofloxacin 1 tab PO DAILY 01/22/18 01/22/18 levothyroxine [Synthroid] 100 mcg PO DAILY 01/22/18 01/22/18 Previous Rx's Medication Instructions Recorded atenolol 25 mg tablet 25 mg PO QPM #90 tab 09/03/17 digoxin 250 mcg tablet 125 mcg PO QPM #45 tab 10/04/17 Allergies Allergy/AdvReac Type Severity Reaction Status Date / Time metformin Allergy Mild GI UPSET Verified 01/10/18 13:51 phenobarbital Allergy Mild GI UPSET Verified 01/10/18 13:51 Sulfa (Sulfonamide Allergy Mild HIVES Verified 01/10/18 13:51 Antibiotics) tetanus toxoid, adsorbed Allergy Mild RASH Verified 01/10/18 13:51 Review of Systems Review of Systems All systems reviewed & are unremarkable except as noted in HPI and below Constitutional Denies chills, Reports fatigue, Denies fever(s), Denies lethargy, Reports malaise and Reports weakness ENT Ears, Nose, Mouth, and Throat: Denies vertigo and Denies dizziness Cardiovascular Denies chest pain, Denies syncope, Denies irregular heart rhythm, Denies lightheadedness, Denies palpitations, Denies dyspnea, Denies dyspnea on exertion and Denies orthopnea Respiratory Denies cough, Denies dyspnea, Denies dyspnea on exertion and Denies wheezing Gastrointestinal Gastrointestinal: Denies abdominal pain, Denies change in bowel habits, Denies diarrhea, Denies nausea and Denies vomiting Musculoskeletal Comments: left Fracture of lower leg Neurologic Denies vertigo, Denies dizziness, Denies syncope and Reports weakness Endocrine Reports fatigue and Denies palpitations Allergic/Immunologic Denies wheezing [facility] Medical History Peritoneal dialysis catheter in place (Chronic) Dependence on renal dialysis (Chronic 12/18/16) Multiple myeloma (Chronic) Hypertension (Chronic) Other and unspecified hyperlipidemia (Chronic) Controlled type 2 diabetes mellitus (Chronic) Hypothyroidism (acquired) (Chronic 12/16/10) Sleep apnea (Chronic) MGUS (monoclonal gammopathy of unknown significance) (Chronic 2014) Aortic stenosis (Chronic) Nephropathy (Chronic) Vitamin D deficiency (Chronic) Seizures (Chronic) Depression (Chronic 12/16/10) Anemia of chronic disease (Chronic) Renal failure (Chronic) Chronic kidney disease (Chronic 10/22/14) History of PSVT (paroxysmal supraventricular tachycardia) (Chronic 12/16/10) Hx of adenomatous colonic polyps (Inactive 12/16/10) History of vaginal delivery (Resolved) Surgical History History of arthroscopic knee surgery (Resolved 06/2010) History of breast biopsy (Resolved 1989) History of foot surgery (Resolved 1999) History of hysterectomy including cervix (Resolved 03/1977) History of surgery on arm (Resolved 2005) History of tonsillectomy (Resolved 1971) History of ventral hernia repair (Resolved 1991) Hx of cholecystectomy (Resolved 1978) Family History Mother Age: 95 Osteoporosis Father Lung cancer Social History marital status: number of children: 3 household members: spouse lives independently: Yes caregiver/support person: No housing: house pets and animals: No education level: college occupational status: 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 (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) 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 travel history: recent ([place], [place]) leisure activities: games (Plays Cards) Smoking Status: Never smoker Tobacco: How many years used: 0 quit status: quit date established (Never Started) second hand exposure: No alcohol intake: never substance use type: does not use Exam Initial Vital Signs Initial Vital Signs: Vital Signs Pulse Rate 57 L 01/22/18 16:55 Respiratory Rate 16 01/22/18 16:55 Blood Pressure 102/46 L 01/22/18 16:55 Const General: cooperative and frail appearing ( weak) Orientation: alert, awake and oriented x3 HENMT Head: normal to inspection and normocephalic Mouth: mucous membranes abnormal ( dry) Eyes General: appearance normal, both eyes and all related structures Chest Chest: normal inspection of the chest and other ( hemodialysis catheter of right chest no sign of infection) Resp Effort & Inspection: normal respiratory effort Auscultation: clear to auscultation bilaterally, no crackles, no rales and no rhonchi Cardio Rate: regular rate Rhythm: regular rhythm Heart Sounds: S1 normal and S2 normal GI Palpation: soft, No firm, No tender and No ascites Other: peritoneal catheter in place no sign of infection Skin General: no rashes or lesions noted, No jaundice and No petechiae Neuro General: alert, oriented x3, gait normal and no focal motor deficits Speech: speech normal Extrem Other: cast let left leg moving toes freely no pain Scores GCS Elbert coma scale eye opening: Spontaneous Elbert coma scale verbal response: Confused Matador coma scale motor response: Obey commands Matador coma scale total score: 14 Course Orders Ordered: ED Orders 01/22/18 22:53 Lactate 4HR (Lactic Acid Rflx) Stat Discontinued Medications Sodium Chloride (Normal Saline 0.9%) 500 mls @ 1,000 mls/hr IV BOLUS PRN PRN Reason: Fluid replacement Last Infusion: 01/22/18 20:17 Dose: 0 mls/hr Admin: 01/22/18 19:05 Dose: 1,000 mls/hr Vital Signs - 8 hr 01/22/18 20:41 01/22/18 22:24 01/22/18 23:14 Pulse Rate 58 L 55 L 53 L Respiratory Rate 11 L 15 17 Blood Pressure [Right Arm] 104/38 L 109/47 L 96/80 Pulse Oximetry 92 95 98 MDM - Weakness Lab Data Attestation: I reviewed the patient's lab results. Result diagrams: 01/22/18 17:25 01/22/18 17:25 Lab Results 01/22/18 01/22/18 01/22/18 Range/Units 17:25 17:25 17:25 WBC 9.7 (4.5-11.0) X10^3/uL RBC 2.71 L (4.0-5.2) X10^6/uL Hgb 9.2 L (12.0-16.0) g/dL Hct 26.4 L (36-46) % MCV 97.3 (80-100) fL MCH 34.1 H (26-34) PG MCHC 35.1 (30-36) % RDW 17.7 H (11.6-14.8) % Plt Count 144 L (150-400) X10^3/uL Neut % (Auto) 75.9 H (50-75) % Lymph % (Auto) 13.2 L (25-40) % [place]row[place] % (Auto) 8.8 (3-14) % Eos % (Auto) 1.5 L (2-4) % Baso % (Auto) 0.6 (0-2) % Neut # (Auto) 7400 H (3785-2856) /uL PT 11.1 (10.1-12.7) SECONDS INR 1.0 (0.9-1.3) APTT 28 (26.4-36.2) SECONDS Sodium 131 L (137-145) mmol/L Potassium 3.1 L (3.4-5.1) mmol/L Chloride 93 L (98-107) mmol/L Carbon Dioxide 24 (22-32) mmol/L BUN 59 H (7-17) mg/dL Creatinine 7.10 H (0.52-1.04) mg/dL Estimated GFR 5.7 L (>60) mL/min BUN/Creatinine Ratio 8.3 (6-22) Glucose 172 H (80-110) mg/dL Lactate (0.7-2.1) mmol/L Calcium 7.9 L (8.4-10.2) mg/dL Total Bilirubin 0.6 (0.2-1.3) mg/dL AST 16 (14-36) IU/L ALT 26 (9-52) IU/L Alkaline Phosphatase 110 (38-126) U/L Troponin I 0.033 (0.01-0.034) ng/mL Total Protein 5.6 L (6.3-8.2) g/dL Albumin 2.9 L (3.5-5.0) g/dL Globulin 2.7 (1.7-4.1) g/dL Albumin/Globulin Ratio 1.1 (1.0-2.8) Lipase 133 (23-300) U/L TSH (0.47-4.68) uIU/mL 01/22/18 01/22/18 01/22/18 Range/Units 17:25 17:25 22:53 WBC (4.5-11.0) X10^3/uL RBC (4.0-5.2) X10^6/uL Hgb (12.0-16.0) g/dL Hct (36-46) % MCV (80-100) fL MCH (26-34) PG MCHC (30-36) % RDW (11.6-14.8) % Plt Count (150-400) X10^3/uL Neut % (Auto) (50-75) % Lymph % (Auto) (25-40) % [place] % (Auto) (3-14) % Eos % (Auto) (2-4) % Baso % (Auto) (0-2) % Neut # (Auto) (3186-0144) /uL PT (10.1-12.7) SECONDS INR (0.9-1.3) APTT (26.4-36.2) SECONDS Sodium (137-145) mmol/L Potassium (3.4-5.1) mmol/L Chloride (98-107) mmol/L Carbon Dioxide (22-32) mmol/L BUN (7-17) mg/dL Creatinine (0.52-1.04) mg/dL Estimated GFR (>60) mL/min BUN/Creatinine Ratio (6-22) Glucose (80-110) mg/dL Lactate 2.7 H 2.2 H (0.7-2.1) mmol/L Calcium (8.4-10.2) mg/dL Total Bilirubin (0.2-1.3) mg/dL AST (14-36) IU/L ALT (9-52) IU/L Alkaline Phosphatase (38-126) U/L Troponin I (0.01-0.034) ng/mL Total Protein (6.3-8.2) g/dL Albumin (3.5-5.0) g/dL Globulin (1.7-4.1) g/dL Albumin/Globulin Ratio (1.0-2.8) Lipase (23-300) U/L TSH 1.90 (0.47-4.68) uIU/mL Point of Care Testing Glucose POC 200 Imaging Data Chest x-ray: Radiologist's impression: PROCEDURE: XR CHEST 1V INDICATIONS: weakness TECHNIQUE: One view of the chest was acquired. COMPARISON: [facility], CR, XR CHEST 1V, 11/27/2017, 5:41. FINDINGS: Surgical changes and devices: Tunneled hemodialysis catheter is present with the tip projected over the right atrium. Lungs and pleura: No pleural effusions or pneumothorax. Lungs are clear. Mediastinum: Mediastinal contours appear normal. Heart size is normal. Bones and chest wall: No suspicious bony lesions. Overlying soft tissues appear unremarkable. IMPRESSION: No acute cardiopulmonary findings. Dictated by: Rebecca Adair M.D. on 01/22/2018 at 19:15 Approved by: Rebecca Adair M.D. on 01/22/2018 at 19:16 MDM Narrative Medical decision making narrative: Patient has had cycles over the last 3 months of weakness and confusion. She has required hemo dialysis as opposed it peritoneal dialysis and she clears up readily. She has had increased confusion over the last 3 days. She is too weak and not herself per family. She is afebrile no sign of infection she does have a mild elevated lactate of 2.7. However no leukocytosis. Her safety supervisor is Dr. Carpenter at [facility]. I think she may require some rehab facility however family states that rehab facilities do not exist if he were on peritoneal dialysis. She may need hemodialysis and rehab. she overall does not appear toxic, or septic. she had this time does not require any emergent dialysis Helen Trevizo has been updated on patient's symptoms and test results. Happy to accept to observation [facility] and [facility] are closed Discharge Plan Departure Patient Disposition: [facility] Clinical Impression: Dependence on renal dialysis, Acute metabolic encephalopathy Discharge Date/Time: 01/23/18 00:01 Interventions: ED Discharge Assessment Last Done: 01/22/18 23:59 Prescriptions: No Action insulin aspart U-100 [Novolog PenFill U-100 Insulin] 100 UNIT/1 ML cartridge 1 dose SQ DIRECTED Qty: 0 RF: 0 losartan 50 mg tablet 50 mg PO QAM Qty: 0 RF: 0 digoxin [Lanoxin] 250 mcg tablet 125 mcg PO QPM Qty: 45 RF: 3 cholecalciferol (vitamin D3) 5,000 unit capsule 5,000 unit PO QMWF RF: 0 atenolol 25 mg tablet 25 mg PO QPM Qty: 90 RF: 3 levetiracetam [Keppra] 500 mg tablet 500 mg PO DAILY RF: 0 duloxetine 30 mg capsule,delayed release(DR/EC) 30 mg PO BID Qty: 0 RF: 0 sevelamer carbonate [Renvela] 800 mg tablet 2 tab PO TIDWM RF: 0 insulin glargine [Lantus U-100 Insulin] 100 UNIT/1 ML solution 14 units SQ QPM RF: 0 levofloxacin 250 mg tablet 1 tab PO DAILY RF: 0 levothyroxine [Synthroid] 100 mcg Tablet 100 mcg PO DAILY RF: 0 furosemide 80 mg Tablet 80 mg PO QAM RF: 0 B complex-vitamin C-folic acid [Nickie-Camilo] 0.8 mg Tablet 1 tab PO QAM RF: 0 fluconazole 100 mg Tablet 1 tab PO QDX10 RF: 0 acetaminophen-codeine 300-30 mg tablet 1 tab PO TID PRN (Reason: PAIN) RF: 0 tramadol 50 mg Tablet 50 mg PO PRN PRN (Reason: pain) RF: 0 dexamethasone 4 mg tablet 20 mg PO QWEEK RF: 0 gabapentin 100 mg capsule 200 mg PO QPM RF: 0 bortezomib [Velcade] 3.5 mg Recon Soln 1 dose subcut QWEEK RF: 0 opium tincture 10 mg/mL (morphine) Tincture 0.6 ml PO PRN PRN (Reason: as directed) RF: 0 diphenoxylate-atropine [Lomotil] 2.5-0.025 mg tablet 1 tab PO Q6-8H PRN (Reason: diarrhea) RF: 0 ipratropium bromide 42 mcg (0.06 %) spray,non-aerosol 2 spray Intranasal TID PRN (Reason: as directed) RF: 0 cholestyramine-aspartame [Prevalite] 4 gram powder in packet 1 packet PO DAILY RF: 0
--- NOTE | 2018-01-22 18:57 | DI.RAD.S_ITS ---
PROCEDURE: XR CHEST 1V INDICATIONS: weakness TECHNIQUE: One view of the chest was acquired. COMPARISON: [facility], CR, XR CHEST 1V, 11/27/2017, 5:41. FINDINGS: Surgical changes and devices: Tunneled hemodialysis catheter is present with the tip projected over the right atrium. Lungs and pleura: No pleural effusions or pneumothorax. Lungs are clear. Mediastinum: Mediastinal contours appear normal. Heart size is normal. Bones and chest wall: No suspicious bony lesions. Overlying soft tissues appear unremarkable. IMPRESSION: No acute cardiopulmonary findings. Dictated by: Rebecca Adair M.D. on 01/22/2018 at 19:15 Approved by: Rebecca Adair M.D. on 01/22/2018 at 19:16
[2018-01-22] MEDS: SODIUM CHLORIDE 0.9% 500 ML 1000 ML IV (19:05)
--- NOTE | 2018-01-22 20:11 | PC.NURSE ---
pt alert and awake, reports, generalized weakness, skin pale, warm dry right upper chest with hemodialysis cath, abdominal with peritoneal dialysis port. pt denies abdominal pain with palpitation, reports, itching left side of abd, due to shingles. denies chest pain or shortness of breath moving all ext well. left lower leg with casting, distal cms intact. family at bs. verbal understanding transport to [place] for hemodialysis.
--- NOTE | 2018-01-22 21:41 | PC.NURSE ---
explained to pt due to severe weakness and low bp, best to use bedpan at this time, for safety. pt verbal understanding and agreed, states, will wait. lower pants removed and call light given, spouse at bs.
[2018-01-22 21:57] LABS: Reflexed Lactate in 2 Hours Y
--- NOTE | 2018-01-22 22:42 | PC.NURSE ---
calling for report at [phone], states will call back.
--- NOTE | 2018-01-22 22:44 | PC.NURSE ---
lab made aware of repeat lactate.
[2018-01-22 23:17] LABS: Lactate 2HR (Lactic Acid Rflx) 2.2 mmol/L (0.7-2.1)
--- NOTE | 2018-01-22 23:22 | PC.NURSE ---
shared patient information with Zak at transfer center. has no further questions at this time and they are ready for pt arrival. [facility] will be here at [phone].
[2018-01-25 14:18] LABS: Levetiracetam Keppra 13.5 mcg/mL
== END 2018-01-23 00:01 | disposition short-term general hospital (02) ==
PROVIDERS: Emergency Medicine; Emergency Provider Emergency Medicine; PCP Internal Medicine
DX: G93.41 Metabolic encephalopathy (principal); Z99.2 Dependence on renal dialysis
CPT/HCPCS: 36415; 36591; 71045; 80053; 80177; 82962; 83605; 83690; 84443; 84484; 85025; 85610; 85730; 87040; 93005; 93041; 96360; 99285

== ENCOUNTER → 2018-01-29 11:40 | Outpatient (REF) | payer MEDICARE, SELFPAY ==
[2018-01-29 11:50] LABS: Hematocrit 32.1 % (36-46); Mean Corpuscular HGB Conc 34.3 % (30-36); Mean Corpuscular Hemoglobin 33.1 PG (26-34); Mean Corpuscular Volume 96.6 fL (80-100); Platelet Count 111 X10^3/uL (150-400); Red Blood Cell Count 3.32 X10^6/uL (4.0-5.2); Red Cell Distribution Width 18.8 % (11.6-14.8); White Blood Cell Count 6.7 X10^3/uL (4.5-11.0)
[2018-01-29 12:00] LABS: Alanine Aminotransferase 33 IU/L (9-52); Albumin 2.8 g/dL (3.5-5.0); Albumin Globulin Ratio 1.1 (1.0-2.8); Alkaline Phosphatase 118 U/L (38-126); Aspartate Aminotransferase 26 IU/L (14-36); BUN Creatinine Ratio 5.2 (6-22); Bilirubin Total 0.5 mg/dL (0.2-1.3); Blood Urea Nitrogen 13 mg/dL (7-17); Calcium 7.6 mg/dL (8.4-10.2); Carbon Dioxide 29 mmol/L (22-32); Chloride 99 mmol/L (98-107); Globulin 2.6 g/dL (1.7-4.1); Glucose 163 mg/dL (80-110); HEMOLYSIS < 15 (0-50); Potassium 3.9 mmol/L (3.4-5.1); Sodium 137 mmol/L (137-145); Total Protein 5.4 g/dL (6.3-8.2)
== END ==
LOC: LAB 11:40
PROVIDERS: PCP Internal Medicine; Visit Provider Internal Medicine
DX: D63.1 Anemia in chronic kidney disease (principal)
CPT/HCPCS: 80053; 85027

== ENCOUNTER 2018-02-04 10:36 | Emergency (ER) | payer MEDICARE, SELFPAY ==
[2018-02-04 10:41] VITALS: BP 125/55; PULSE 68; RESP 16; TEMP 36.4; O2SAT 100; BMI 26.8
[2018-02-04 11:13] LABS: Add Manual Diff / Slide Review NO; Basophils Percent Auto 1.3 % (0-2); Eosinophils Percent Auto 3.1 % (2-4); Hematocrit 31.3 % (36-46); Hemoglobin 10.5 g/dL (12.0-16.0); Mean Corpuscular HGB Conc 33.7 % (30-36); Mean Corpuscular Hemoglobin 32.7 PG (26-34); Mean Corpuscular Volume 97.1 fL (80-100); Monocytes Percent Auto 8.8 % (3-14); Neutrophils Absolute Auto 5400 /uL (3000-5900); Neutrophils Percent Auto 71.8 % (50-75); Platelet Count 143 X10^3/uL (150-400); Red Blood Cell Count 3.22 X10^6/uL (4.0-5.2); Red Cell Distribution Width 17.3 % (11.6-14.8); White Blood Cell Count 7.6 X10^3/uL (4.5-11.0)
[2018-02-04 11:25] LABS: Alanine Aminotransferase 35 IU/L (9-52); Albumin 2.9 g/dL (3.5-5.0); Alkaline Phosphatase 120 U/L (38-126); Aspartate Aminotransferase 29 IU/L (14-36); BUN Creatinine Ratio 9.3 (6-22); Bilirubin Total 0.4 mg/dL (0.2-1.3); Blood Urea Nitrogen 57 mg/dL (7-17); Calcium 8.2 mg/dL (8.4-10.2); Carbon Dioxide 22 mmol/L (22-32); Chloride 102 mmol/L (98-107); Estimated Glomerular Filt Rate 6.8 mL/min (>60); Globulin 2.8 g/dL (1.7-4.1); Glucose 146 mg/dL (80-110); Potassium 4.3 mmol/L (3.4-5.1); Sodium 138 mmol/L (137-145); Total Protein 5.7 g/dL (6.3-8.2)
[2018-02-04 11:29] LABS: HEMOLYSIS < 15 (0-50)
--- NOTE | 2018-02-04 11:30 | ED_ITS ---
HPI - Female Genitourinary General Chief complaint: Urogenital-Female Stated complaint: entire body itches Time Seen by Provider: 02/04/18 10:43 History of Present Illness HPI Narrative: 72-year-old nonsmoking female with complex medical history presents with intense whole body itching for the past week. She denies any rash nor any swelling of tongue, lips or throat. She denies any difficulty swallowing or trouble breathing. She has had no new medications and denies any change in her diet. In addition the patient complains of symptoms consistent with UTI including dysuria, frequency and urgency. She is a diabetic and end- stage renal failure patient whom still makes urine. She receives hemodialysis Mondays, Wednesdays, and Fridays. She has done trials of peritoneal dialysis but it does not seem to do the trick quite as well. Her last dialysis was on Sunday as scheduled. She is supposed to go today at 5:30 p.m.. She has had no fever or chills and denies nausea, vomiting or diarrhea. She denies any weakness and feels otherwise well MD Complaint: dysuria and UTI Onset (ago): day(s) Severity: mild Quality: Burning Duration: constant Relieving factors: none Exacerbating factors: urination Urinary symptoms: Difficulty Urinating, Dysuria, Frequency and Urgency Related Data Home Medications Medication Instructions Recorded Confirmed insulin glargine [Lantus U-100 14 units SQ QPM 08/21/17 02/04/18 Insulin] sevelamer carbonate [Renvela] 2 tab PO TIDWM 08/21/17 02/04/18 losartan 50 mg tablet 50 mg PO QAM #0 tab 09/27/17 02/04/18 cholecalciferol (vitamin D3) 5,000 5,000 unit PO QMWF 11/22/17 02/04/18 unit capsule acetaminophen-codeine 1 tab PO TID PRN 01/02/18 02/04/18 bortezomib [Velcade] 1 dose SUBCUT QWEEK 01/02/18 02/04/18 dexamethasone 20 mg PO QWEEK 01/02/18 02/04/18 diphenoxylate-atropine [Lomotil] 1 tab PO Q6-8H PRN 01/02/18 02/04/18 gabapentin 200 mg PO QPM 01/02/18 02/04/18 tramadol 50 mg PO PRN PRN 01/02/18 02/04/18 duloxetine 30 mg capsule,delayed 30 mg PO BID #0 cap 01/10/18 02/04/18 release levetiracetam 500 mg tablet 500 mg PO DAILY tab 01/10/18 02/04/18 cholestyramine-aspartame 1 packet PO DAILY 01/14/18 02/04/18 [Prevalite] ipratropium bromide 2 spray INTRANASAL TID PRN 01/14/18 02/04/18 B complex-vitamin C-folic acid 1 tab PO QAM 01/22/18 02/04/18 [Nickie-Camilo] fluconazole 1 tab PO QDX10 01/22/18 02/04/18 furosemide 80 mg PO QAM 01/22/18 02/04/18 levothyroxine [Synthroid] 100 mcg PO DAILY 01/22/18 02/04/18 vitamin B comp no.3-folic acid 1 1 tab PO DAILY 02/01/18 02/04/18 mg-vit C 60 mg-biotin 300 mcg tablet Previous Rx's Medication Instructions Recorded atenolol 25 mg tablet 25 mg PO QPM #90 tab 09/03/17 digoxin 250 mcg tablet 125 mcg PO QPM #45 tab 10/04/17 insulin aspart U-100 100 unit/mL See Label Instructions SUBCUT 02/01/18 subcutaneous solution .COMPLEX #10 ml opium tincture 10 mg/mL (morphine) 0.6 ml PO QID PRN #118 ml 02/01/18 oral cephalexin [Keflex] 500 mg PO QID 7 Days #28 cap 02/04/18 Allergies Allergy/AdvReac Type Severity Reaction Status Date / Time procaine [From Novocain] Allergy Intermediate Palpitation Verified 02/04/18 10: 41 s metformin Allergy Mild GI UPSET Verified 02/04/18 10:41 phenobarbital Allergy Mild GI UPSET Verified 02/04/18 10:41 Sulfa (Sulfonamide Allergy Mild HIVES Verified 02/04/18 10:41 Antibiotics) tetanus toxoid, adsorbed Allergy Mild RASH Verified 02/04/18 10:41 Review of Systems Review of Systems All systems reviewed & are unremarkable except as noted in HPI and below Constitutional Denies chills, Denies fever(s), Denies lethargy and Denies weakness Comments: Itching Eyes Denies change in vision, Denies eye discharge, Denies irritation and Denies loss of vision ENT Ears, Nose, Mouth, and Throat: Denies change in voice, Denies neck pain and Denies sore throat Cardiovascular Denies chest pain, Denies irregular heart rhythm, Denies lightheadedness, Denies palpitations, Denies dyspnea, Denies dyspnea on exertion and Denies orthopnea Respiratory Denies cough, Denies dyspnea, Denies dyspnea on exertion and Denies wheezing Gastrointestinal Gastrointestinal: Denies abdominal pain, Denies change in bowel habits, Denies diarrhea, Denies nausea and Denies vomiting Genitourinary Denies hematuria, Reports dysuria, Denies flank pain, Denies urinary incontinence and Reports urinary urgency Musculoskeletal Denies neck pain Integumentary/Breasts Denies pruritus, Denies erythema, Denies rash and Denies wounds Neurologic Denies confusion, Denies loss of vision and Denies weakness Psychiatric Denies anxiety, Denies confusion, Denies depression, Denies homicidal ideation and Denies suicidal ideation Endocrine Denies palpitations Hematologic/Lymphatic Denies easy bruising Allergic/Immunologic Denies wheezing [facility] Medical History Peritoneal dialysis catheter in place (Chronic) Dependence on renal dialysis (Chronic 12/18/16) Multiple myeloma (Chronic) Hypertension (Chronic) Other and unspecified hyperlipidemia (Chronic) Controlled type 2 diabetes mellitus (Chronic) Hypothyroidism (acquired) (Chronic 12/16/10) Sleep apnea (Chronic) MGUS (monoclonal gammopathy of unknown significance) (Chronic 2014) Aortic stenosis (Chronic) Nephropathy (Chronic) Vitamin D deficiency (Chronic) Seizures (Chronic) Depression (Chronic 12/16/10) Anemia of chronic disease (Chronic) Renal failure (Chronic) Chronic kidney disease (Chronic 10/22/14) History of PSVT (paroxysmal supraventricular tachycardia) (Chronic 12/16/10) Hx of adenomatous colonic polyps (Inactive 12/16/10) History of vaginal delivery (Resolved) Surgical History History of arthroscopic knee surgery (Resolved 06/2010) History of breast biopsy (Resolved 1989) History of foot surgery (Resolved 1999) History of hysterectomy including cervix (Resolved 03/1977) History of surgery on arm (Resolved 2005) History of tonsillectomy (Resolved 1971) History of ventral hernia repair (Resolved 1991) Hx of cholecystectomy (Resolved 1978) Family History Mother Age: 95 Osteoporosis Father Lung cancer Social History marital status: number of children: 3 household members: spouse lives independently: Yes caregiver/support person: No housing: house pets and animals: No education level: college occupational status: other 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 Extraoccular muscles are intact bilaterally. There is no subconjunctival hemorrhage or exudate. ENT: No tongue, lip or pharyngeal swelling CHEST: Lungs are clear to auscultation bilaterally and free of wheezes, rales, or rhonchi. Heart rate is regular rhythm, there are no murmurs, clicks, rubs, or gallops. There is no chest wall tenderness. ABD: Abdomen is soft and nontender. There is no guarding or rebound. Bowel sounds are normal in all 4 quadrants. There is no mass or organomegaly. EXT: Full painless ROM of all extremities with no loss of sensation or strength. SKIN: Warm, pink, and dry. No erythema or rash Initial Vital Signs Initial Vital Signs: Vital Signs Temperature 97.6 F 02/04/18 10:41 Pulse Rate 68 02/04/18 10:41 Respiratory Rate 16 02/04/18 10:41 Blood Pressure 125/55 L 02/04/18 10:41 Pulse Oximetry 100 02/04/18 10:41 Course Orders Ordered: ED Orders 02/04/18 11:05 Complete Blood Count AUTO DIFF Stat Comprehensive Metabolic Panel Stat Vital Signs - 8 hr 02/04/18 12:16 Pulse Rate 63 Respiratory Rate 16 Blood Pressure [Right Arm] 129/49 L Pulse Oximetry 100 MDM - Female Genitourinary Lab Data Result diagrams: 02/04/18 11:05 02/04/18 11:05 Lab Results 02/04/18 02/04/18 02/04/18 Range/Units 10:45 11:05 11:05 WBC 7.6 (4.5-11.0) X10^3/uL RBC 3.22 L (4.0-5.2) X10^6/uL Hgb 10.5 L (12.0-16.0) g/dL Hct 31.3 L (36-46) % MCV 97.1 (80-100) fL MCH 32.7 (26-34) PG MCHC 33.7 (30-36) % RDW 17.3 H (11.6-14.8) % Plt Count 143 L (150-400) X10^3/uL Neut % (Auto) 71.8 (50-75) % Lymph % (Auto) 15.0 L (25-40) % [place] % (Auto) 8.8 (3-14) % Eos % (Auto) 3.1 (2-4) % Baso % (Auto) 1.3 (0-2) % Neut # (Auto) 5400 (1223-6891) /uL Sodium 138 (137-145) mmol/L Potassium 4.3 (3.4-5.1) mmol/L Chloride 102 (98-107) mmol/L Carbon Dioxide 22 (22-32) mmol/L BUN 57 H (7-17) mg/dL Creatinine 6.10 H (0.52-1.04) mg/dL Estimated GFR 6.8 L (>60) mL/min BUN/Creatinine Ratio 9.3 (6-22) Glucose 146 H (80-110) mg/dL Calcium 8.2 L (8.4-10.2) mg/dL Total Bilirubin 0.4 (0.2-1.3) mg/dL AST 29 (14-36) IU/L ALT 35 (9-52) IU/L Alkaline Phosphatase 120 (38-126) U/L Total Protein 5.7 L (6.3-8.2) g/dL Albumin 2.9 L (3.5-5.0) g/dL Globulin 2.8 (1.7-4.1) g/dL Albumin/Globulin Ratio 1.0 (1.0-2.8) Urine Color Yellow Urine Appearance Turbid Urine pH 6.0 (4.5-8.0) Ur Specific [place] 1.010 (1.000-1.035) Urine Protein 2+ H (Negative) Urine Glucose (UA) Negative (Normal) g/dL Urine Ketones Negative (NEGATIVE) Urine Occult Blood 2+ H (Negative) Urine Nitrate Negative (Negative) Urine Bilirubin Negative (NEGATIVE) Urine Urobilinogen 0.2 (0.2) E.U./dL Ur Leukocyte Esterase 3+ H (NEGATIVE) Urine RBC 5-10/hpf H (0-5/HPF) Urine WBC >100/hpf H (0-5/HPF) Ur Squamous Epith Cells 1-5 /hpf Urine Bacteria Moderate (10-30) H (None) Ur Culture Indicated? Specimen cultured Micro UA Comment Not Reportable Discharge Plan Departure Patient Disposition: Home Clinical Impression: Acute UTI, Generalized pruritus Discharge Date/Time: 02/04/18 12:29 Interventions: ED Discharge Assessment Last Done: 02/04/18 12:28 Instructions: Urinary Tract Infection Activity Restrictions/Additional Instructions: *You have been diagnosed with [ acute urinary tract infection and generalized pruritus ] *What to do: *Take medications as directed *Follow up with your primary care provider in 2-3 days, call for an appointment. Let them know you were seen in the Emergency Department and that we ask that you be seen in follow up. Proceed to dialysis today as planned *Return to ER if you should have any new, worsening or concerning symptoms Prescriptions: New cephalexin [Keflex] 500 mg capsule 500 mg PO QID 7 Days Qty: 28 RF: 0 No Action losartan 50 mg tablet 50 mg PO QAM Qty: 0 RF: 0 digoxin [Lanoxin] 250 mcg tablet 125 mcg PO QPM Qty: 45 RF: 3 cholecalciferol (vitamin D3) 5,000 unit capsule 5,000 unit PO QMWF RF: 0 vit B comp no.8-imuwb-G-biotin [Nickie-Camilo Rx] 1-60-300 mg-mg-mcg tablet 1 tab PO DAILY RF: 0 insulin aspart U-100 [Novolog U-100 Insulin aspart] 100 unit/mL solution See Label Instructions SUBCUT .COMPLEX Qty: 10 RF: 8 opium tincture 10 mg/mL (morphine) tincture 0.6 ml PO QID PRN (Reason: diarrhea) Qty: 118 RF: 0 atenolol 25 mg tablet 25 mg PO QPM Qty: 90 RF: 3 levetiracetam [Keppra] 500 mg tablet 500 mg PO DAILY RF: 0 duloxetine 30 mg capsule,delayed release(DR/EC) 30 mg PO BID Qty: 0 RF: 0 sevelamer carbonate [Renvela] 800 mg tablet 2 tab PO TIDWM RF: 0 insulin glargine [Lantus U-100 Insulin] 100 UNIT/1 ML solution 14 units SQ QPM RF: 0 levothyroxine [Synthroid] 100 mcg Tablet 100 mcg PO DAILY RF: 0 furosemide 80 mg Tablet 80 mg PO QAM RF: 0 B complex-vitamin C-folic acid [Nickie-Camilo] 0.8 mg Tablet 1 tab PO QAM RF: 0 fluconazole 100 mg Tablet 1 tab PO QDX10 RF: 0 acetaminophen-codeine 300-30 mg tablet 1 tab PO TID PRN (Reason: PAIN) RF: 0 tramadol 50 mg Tablet 50 mg PO PRN PRN (Reason: pain) RF: 0 dexamethasone 4 mg tablet 20 mg PO QWEEK RF: 0 gabapentin 100 mg capsule 200 mg PO QPM RF: 0 bortezomib [Velcade] 3.5 mg Recon Soln 1 dose subcut QWEEK RF: 0 diphenoxylate-atropine [Lomotil] 2.5-0.025 mg tablet 1 tab PO Q6-8H PRN (Reason: diarrhea) RF: 0 ipratropium bromide 42 mcg (0.06 %) spray,non-aerosol 2 spray Intranasal TID PRN (Reason: as directed) RF: 0 cholestyramine-aspartame [Prevalite] 4 gram powder in packet 1 packet PO DAILY RF: 0 Referrals: Papo Bey MD [Primary Care Provider] -
[2018-02-04 11:31] LABS: Appearance Urine UA TURBID; Bilirubin Urine UA NEGATIVE (NEGATIVE); Color Urine UA YELLOW; Glucose Urine UA NEGATIVE (Normal); Ketones Urine UA NEGATIVE (NEGATIVE); Leukocyte Esterase Urine UA 3+ (NEGATIVE); Nitrite Urine UA NEGATIVE (Negative); Occult Blood Urine UA 2+ (Negative); Protein Urine UA 2+ (Negative); Urobilinogen Urine UA 0.2 E.U./dL (0.2)
[2018-02-04 11:37] LABS: Bacteria Urine Moderate (10-30); RBC Urine 5-10/HPF (0-5/HPF); Squamous Epithelial Cell Urine 1-5 /HPF; WBC Urine >100/HPF (0-5/HPF)
[2018-02-04 11:38] VITALS: BP 127/49; PULSE 64; RESP 15; O2SAT 98
[2018-02-04 11:38] LABS: Culture Indicated Urine Specimen Cultured
[2018-02-04 12:16] VITALS: BP 129/49; PULSE 63; RESP 16; O2SAT 100
== END 2018-02-04 12:29 | disposition home or self-care (01) ==
PROVIDERS: Emergency Provider Emergency Medicine; PCP Internal Medicine
DX: N39.0 Urinary tract infection, site not specified (principal); L29.9 Pruritus, unspecified
CPT/HCPCS: 36415; 80053; 81001; 85025; 87086; 99282; 99283

== ENCOUNTER → 2018-06-13 14:53 | Outpatient (CLI) | payer MEDICARE, SELFPAY ==
[2018-06-13 15:40] LABS: Add Manual Diff / Slide Review NO; Basophils Absolute Auto 0 /uL (0-100); Basophils Percent Auto 0.3 % (0-2); Eosinophils Absolute Auto 300 /uL (0-450); Eosinophils Percent Auto 2.9 % (2-4); Hematocrit 29.9 % (36-46); Hemoglobin 10.1 g/dL (12.0-16.0); Lymphocytes Absolute Auto 1400 /uL (1100-4500); Lymphocytes Percent Auto 14.5 % (25-40); Mean Corpuscular HGB Conc 33.8 % (30-36); Mean Corpuscular Hemoglobin 30.2 PG (26-34); Mean Corpuscular Volume 89.3 fL (80-100); Monocytes Absolute Auto 500 /uL (0-900); Monocytes Percent Auto 5.3 % (3-14); Neutrophils Absolute Auto 7400 /uL (1500-7000); Platelet Count 105 X10^3/uL (150-400); Red Blood Cell Count 3.35 X10^6/uL (4.0-5.2); Red Cell Distribution Width 15.6 % (11.6-14.8); White Blood Cell Count 9.6 X10^3/uL (4.5-11.0)
[2018-06-13 15:56] LABS: Alanine Aminotransferase 29 IU/L (9-52); Albumin 3.8 g/dL (3.5-5.0); Albumin Globulin Ratio 1.3 (1.0-2.8); Alkaline Phosphatase 118 U/L (38-126); Aspartate Aminotransferase 20 IU/L (14-36); BUN Creatinine Ratio 8.9 (6-22); Bilirubin Total 0.6 mg/dL (0.2-1.3); Blood Urea Nitrogen 24 mg/dL (7-17); Calcium 8.9 mg/dL (8.4-10.2); Carbon Dioxide 29 mmol/L (22-32); Chloride 91 mmol/L (98-107); Estimated Glomerular Filt Rate 17.4 mL/min (>60); Globulin 2.9 g/dL (1.7-4.1); Glucose 181 mg/dL (80-110); HEMOLYSIS < 15 (0-50); Potassium 3.2 mmol/L (3.4-5.1); Sodium 133 mmol/L (137-145); Total Protein 6.7 g/dL (6.3-8.2)
== END ==
PROVIDERS: Family Provider Internal Medicine; PCP Internal Medicine; Visit Provider Internal Medicine Hematology & Oncology
DX: C90.00 Multiple myeloma not having achieved remission (principal)
CPT/HCPCS: 36415; 80053; 85025

== ENCOUNTER → 2018-07-03 12:35 | Outpatient (CLI) | payer MEDICARE, SELFPAY ==
--- NOTE | 2018-07-03 | DI.RAD.S_ITS ---
PROCEDURE: XR CHEST 2V INDICATIONS: End stage renal disease TECHNIQUE: 2 views of the chest were acquired. COMPARISON: [facility], CR, XR CHEST 1V, 01/22/2018, 19:01. [facility], CR, XR CHEST 1V, 11/27/2017, 5:41. FINDINGS: Surgical changes and devices: Double-lumen central venous catheter extends into the right atrium.. Lungs and pleura: Lungs are abnormal with mild pulmonary edema pattern. No pleural effusions or pneumothorax. Mediastinum: Mediastinal contours are normal. Heart size is normal. Bones and chest wall: No suspicious bony abnormalities. Soft tissues appear unremarkable. IMPRESSION: Mild volume overload, mild interstitial prominence, no definite acute disease. Double lumen central venous dialysis catheter extends into the right atrium. Dictated by: Sanjay Hunt M.D. on 07/03/2018 at 13:11 Approved by: Sanjay Hunt M.D. on 07/03/2018 at 13:12
== END ==
PROVIDERS: Family Provider Internal Medicine; PCP Internal Medicine; Visit Provider Student in an Organized Health Care Education/Training Program
DX: N18.6 End stage renal disease (principal); R06.02 Shortness of breath; Z95.828 Presence of other vascular implants and grafts
CPT/HCPCS: 71046